=== PATIENT | female | born 1950 | race Caucasian/White ===

== ENCOUNTER → 2017-12-14 15:34 | Outpatient (CLI) | payer MEDICARE, BC, SELFPAY ==
[2017-12-14 17:59] LABS: D Dimer 221 ng/mL (<230)
== END ==
PROVIDERS: PCP Internal Medicine; Visit Provider Internal Medicine
DX: R07.9 Chest pain, unspecified (principal)
CPT/HCPCS: 36415; 85379

== ENCOUNTER → 2017-12-30 11:12 | Outpatient (CLI) | payer MEDICARE, BC, SELFPAY ==
[2017-12-30 11:56] LABS: INR 1.3 (0.9-1.3); Prothrombin Time 14.1 SECONDS (10.1-12.7)
== END ==
PROVIDERS: PCP Internal Medicine; Visit Provider Internal Medicine
DX: D68.61 Antiphospholipid syndrome (principal)
CPT/HCPCS: 36415; 85610

== ENCOUNTER → 2018-01-06 11:45 | Outpatient (CLI) | payer MEDICARE, BC, SELFPAY ==
[2018-01-06 12:56] LABS: INR 1.1 (0.9-1.3); Prothrombin Time 12.2 SECONDS (10.1-12.7)
== END ==
PROVIDERS: PCP Internal Medicine; Visit Provider Internal Medicine
DX: D68.61 Antiphospholipid syndrome (principal)
CPT/HCPCS: 36415; 85610

== ENCOUNTER → 2018-01-13 12:36 | Outpatient (CLI) | payer MEDICARE, BC, SELFPAY ==
[2018-01-13 14:00] LABS: Prothrombin Time 21.9 SECONDS (10.1-12.7)
== END ==
PROVIDERS: PCP Internal Medicine; Visit Provider Internal Medicine
DX: D68.61 Antiphospholipid syndrome (principal)
CPT/HCPCS: 36415; 85610

== ENCOUNTER → 2018-01-20 11:34 | Outpatient (CLI) | payer MEDICARE, BC, SELFPAY ==
--- NOTE | 2018-01-20 | DI.CT.S_ITS ---
PROCEDURE: CT ABDOMEN WO CON INDICATIONS: RIGHT UPPER QUAD PAIN TECHNIQUE: After the administration of oral contrast, 5 mm thick sections acquired from the diaphragms to the iliac crests. 5 mm coronal and sagittal reformats were then performed. For radiation dose reduction, the following was used: automated exposure control, adjustment of mA and/or kV according to patient size. COMPARISON: None. FINDINGS: Image quality: Excellent. Lung bases: Lung bases are clear. Heart size is normal. Solid organs: Liver is normal in size. Gallbladder unremarkable. Pancreas is normal in contours. Spleen is normal in size. No adrenal nodules. Both kidneys are normal in size, without hydronephrosis or nephrolithiasis. 4 cm incidental left renal cyst Peritoneum and bowel: Postsurgical changes in the GE junction. Bowel loops demonstrate normal wall thickness and caliber. No free fluid or air. Nodes and vessels: No retroperitoneal or mesenteric adenopathy by size criteria. Aorta and inferior vena cava are normal in size. Bones: No suspicious bony lesions. Diffuse osteopenia. No vertebral body compression fractures. Miscellaneous: No ventral hernias. Bilateral breast prostheses incidentally noted. IMPRESSION: No acute abnormality. No evidence of hematoma. Dictated by: Art Brewer M.D. on 01/20/2018 at 14:36 Approved by: Art Brewer M.D. on 01/20/2018 at 14:44
== END ==
PROVIDERS: PCP Internal Medicine; Visit Provider Internal Medicine
DX: R10.11 Right upper quadrant pain (principal); Z79.01 Long term (current) use of anticoagulants
CPT/HCPCS: 74150; Q9967

== ENCOUNTER → 2018-01-28 11:09 | Outpatient (CLI) | payer MEDICARE, BC, SELFPAY ==
--- NOTE | 2018-01-28 | DI.RAD.S_ITS ---
PROCEDURE: XR RIBS RT 2V INDICATIONS: RIGHT RIB PAIN TECHNIQUE: 2 views of the right ribs were acquired. COMPARISON: None. FINDINGS: Surgical changes and devices: None. Bones and chest wall: No fractures or dislocations. No suspicious bony lesions. There is costochondral calcification. Possible costochondral fractures of the right eighth and ninth ribs. Overlying soft tissues appear unremarkable. Lungs and pleura: The visualized lung appears clear. No pleural effusions or pneumothorax are visible. IMPRESSION: ? Costochondral fractures of the right eighth and ninth ribs. Dictated by: Sage Mcgraw M.D. on 01/28/2018 at 13:01 Approved by: Sage Mcgraw M.D. on 01/28/2018 at 13:14
== END ==
PROVIDERS: PCP Internal Medicine; Visit Provider Internal Medicine Gastroenterology
DX: R07.81 Pleurodynia (principal)
CPT/HCPCS: 71100

== ENCOUNTER → 2018-02-08 12:01 | Outpatient (CLI) | payer MEDICARE, BC, SELFPAY ==
--- NOTE | 2018-02-08 12:03 | DI.RAD.S_ITS ---
PROCEDURE: XR CHEST 2V INDICATIONS: Chest pain TECHNIQUE: 2 views of the chest were acquired. COMPARISON: None. FINDINGS: Surgical changes and devices: Surgical clips projecting over the upper abdomen Lungs and pleura: No pleural effusions or pneumothorax. No acute consolidation. Scattered subsegmental atelectasis and/or scarring Mediastinum: Mediastinal contours are normal. Heart size is normal. Bones and chest wall: No suspicious bony abnormalities. Left shoulder joint degeneration, with glenoid subchondral cystic changes. Soft tissues appear unremarkable. IMPRESSION: No acute consolidation. Dictated by: Art Brewer M.D. on 02/08/2018 at 13:52 Approved by: Art Brewer M.D. on 02/08/2018 at 13:53
[2018-02-08 12:35] LABS: Add Manual Diff / Slide Review NO; Basophils Percent Auto 0.7 % (0-2); Eosinophils Percent Auto 0.4 % (2-4); Hematocrit 40.6 % (36-46); Hemoglobin 13.4 g/dL (12.0-16.0); Lymphocytes Percent Auto 23.9 % (25-40); Mean Corpuscular HGB Conc 32.9 % (30-36); Mean Corpuscular Volume 82.1 fL (80-100); Monocytes Percent Auto 9.6 % (3-14); Neutrophils Absolute Auto 4600 /uL (1500-7000); Neutrophils Percent Auto 65.4 % (50-75); Platelet Count 334 X10^3/uL (150-400); Red Blood Cell Count 4.95 X10^6/uL (4.0-5.2); Red Cell Distribution Width 14.4 % (11.6-14.8)
[2018-02-08 13:08] LABS: Alanine Aminotransferase 35 IU/L (9-52); Albumin 5.1 g/dL (3.5-5.0); Albumin Globulin Ratio 1.8 (1.0-2.8); Alkaline Phosphatase 109 U/L (38-126); Aspartate Aminotransferase 42 IU/L (14-36); BUN Creatinine Ratio 24.3 (6-22); Bilirubin Total 0.3 mg/dL (0.2-1.3); Blood Urea Nitrogen 17 mg/dL (7-17); Calcium 10.4 mg/dL (8.4-10.2); Carbon Dioxide 25 mmol/L (22-32); Chloride 101 mmol/L (98-107); Estimated Glomerular Filt Rate > 60.0 mL/min (>60); Globulin 2.8 g/dL (1.7-4.1); Glucose 103 mg/dL (80-110); HEMOLYSIS < 15 (0-50); Potassium 4.8 mmol/L (3.4-5.1); Sodium 141 mmol/L (137-145); Total Protein 7.9 g/dL (6.3-8.2)
[2018-02-08 15:19] LABS: INR 0.9 (0.9-1.3); Prothrombin Time 10.9 SECONDS (10.1-12.7)
[2018-02-08 15:22] LABS: PTT Partial Thromboplastin Tim 37 SECONDS (26.4-36.2)
== END ==
PROVIDERS: PCP Family Medicine; Visit Provider Family Medicine
DX: R07.9 Chest pain, unspecified (principal); D68.61 Antiphospholipid syndrome; I10 Essential (primary) hypertension
CPT/HCPCS: 36415; 71046; 80053; 85025; 85610; 85730

== ENCOUNTER → 2018-02-09 09:55 | Outpatient (CLI) | payer MEDICARE, BC, SELFPAY ==
--- NOTE | 2018-02-09 09:56 | DI.NM.S_ITS ---
PROCEDURE: NM PUL VENT AND PERFUSION RADIOPHARMACEUTICAL: 37.1 mCi Tc-99m DTPA aerosol by inhalation and 9.4 mCi Tc-99m MAA intravenously. INDICATIONS: chest pain, rib pain TECHNIQUE: Ventilation images were obtained first with Tc-99m DTPA aerosol. Subsequently, perfusion images were acquired after intravenous injection of Tc-99m MAA. Anterior, posterior, FRITZ, [place]IZ[place], RPO, LPO, left and right lateral views were obtained. COMPARISON: [facility], CR, XR CHEST 2V, 02/08/2018, 12:11. FINDINGS: There is heterogeneous appearance of ventilation and perfusion. Chest x-ray is clear. IMPRESSION: Low probability of pulmonary embolism. Dictated by: Jessica Steen M.D. on 02/09/2018 at 12:37 Approved by: Jessica Steen M.D. on 02/09/2018 at 12:39
== END ==
PROVIDERS: PCP Family Medicine; Visit Provider Family Medicine
DX: R07.9 Chest pain, unspecified (principal); R07.81 Pleurodynia
CPT/HCPCS: 78582; A9539; A9540

== ENCOUNTER → 2018-05-24 14:48 | Outpatient (CLI) | payer MEDICARE, BC, SELFPAY ==
--- NOTE | 2018-05-24 | DI.ECHO.S_ITS ---
[facility]---------+ [facility] +---------+ : : [address] [place] : : : : [id number] : : : : Phone: [phone] Echocardiogram Report + + :Name: KAILEE GONZALES Study Date: 05/24/2018 Height: 65 in : :[facility] Weight: 136 lb : : Gender: Female BSA: 1.7 m2 : :: 1950 Age: 68 yrs BP: 150/78 mmHg: :Reason For Study: Arrhythmia, SVT : :Ordering Physician: Chano : :Erika Lozano Performed By: Rola Trammell : :Referring: Angela Yanes : + + Interpretation Summary 1) Normal left ventricular thickness, size, wall motion, and systolic function (EF 60-65%). 2) Normal right ventricular size and function. 3) The left atrium is moderately dilated. 4) No significant valvular abnormalities. 5) Hypertension present during the study (BP 150/78). 6) No prior Echo available for comparison. Procedure: A two-dimensional transthoracic echocardiogram with color flow and Doppler was performed. The study quality was technically adequate. There is no prior echocardiogram noted for this patient. The patient was in normal sinus rhythm during the exam. Left Ventricle: The left ventricle is normal in size, wall thickness, and systolic function without any focal wall motion abnormalities. The ejection fraction is estimated to be 60-65%. Diastolic parameters suggest a relaxation abnormality of the left ventricle, consistent with probable normal filling pressures. Right Ventricle: The right ventricle grossly appears normal in size with probable normal systolic function. Atria: The left atrium is moderately dilated. Right atrial size is normal. The interatrial septum is intact with no evidence for an atrial septal defect. Mitral Valve: The mitral valve is normal in structure and function. There is no mitral regurgitation noted. Aortic Valve: The aortic valve is trileaflet. The aortic valve opens well. There is no aortic valve stenosis. There is trace aortic regurgitation. Tricuspid Valve: The tricuspid valve is normal in structure and function. There is trace tricuspid regurgitation. The right ventricular systolic pressure is estimated to be at least 29 mmHg based on an estimated right atrial pressure of 3 mm Hg. Pulmonic Valve: The pulmonic valve is not well visualized. Great Vessels: The aortic root is normal size. The dimensions of the ascending aorta are normal. The aortic arch is at the upper limits of normal in size. The IVC is of normal diameter and collapses greater than 50% with a sniff. This suggests a low right atrial pressure of 3 mm Hg. Pericardium/ Pleura There is no pericardial effusion. There is no pleural effusion. MMode/2D Measurements & Calculations LVIDd: 4.1 cm Ao root diam: 3.1 cm LVIDs: 2.0 cm Aortic Jxn: 2.7 cm FS: 52.3 % asc Aorta Diam: 3.0 cm EPSS: 0.28 cm Ao Arch Diam (Prox Trans): 3.1 cm IVSd: 0.93 cm LVPWd: 0.96 cm LV gaviria. diameter/BSA (cm/m^2): 2.5 LV sys. diameter/BSA (cm/m^2): 1.2 LA dimension: 3.3 cm RA long axis: 4.5 cm LA A2 area: 21.9 cm2 RA area: 14.1 cm2 LA A4 area: 25.0 cm2 RA vol: 37.7 ml LA length (vol): 5.9 cm RA : 22.5 ml/m2 LA vol: 78.7 ml IVC diam: 1.8 cm LA vol index: 46.9 ml/m2 RVDd major: 4.9 cm RVD1 (basal): 3.0 cm RVD2 (mid): 2.9 cm Doppler Measurements & Calculations Ao V2 max: 121.7 cm/sec MV E max néstor: 102.1 cm/sec Ao V2 mean: 83.5 cm/sec MV A max néstor: 78.0 cm/sec Ao max P.9 mmHg MV E/A: 1.3 Ao mean P.2 mmHg Med Peak E' Néstor: 5.5 cm/sec Ao V2 VTI: 28.3 cm E/E' med: 18.7 Lat Peak E' Néstor: 6.7 cm/sec E/E' lat: 15.2 E/e' average: 16.9 MV dec time: 0.19 sec MV P1/2t: 56.0 msec TR max néstor: 255.8 cm/sec MV P1/2t max néstor: 102.5 cm/sec TR max P.2 mmHg MVA(P1/2t): 3.9 cm2 Reading Physician:05:07 PM
== END ==
PROVIDERS: PCP Family Medicine; Visit Provider Internal Medicine Cardiovascular Disease
DX: I47.1 Supraventricular tachycardia (principal)
CPT/HCPCS: 93306

== ENCOUNTER → 2018-06-02 11:01 | Outpatient (CLI) | payer MEDICARE, BC, SELFPAY ==
--- NOTE | 2018-06-04 16:41 | PM.PFT.1 ---
Pulmonary Function Test Referral & Results Date Patient Seen: 06/02/18 Requesting provider: Chano Lozano Indication: R06.09 Results: The spirometry demonstrates an FVC of 3.12 L which is 98% of predicted. The FEV1 was measured at 2.20 L which is 90% of predicted. The FEV1/FVC ratio was 70 which is 92% of predicted. Following the administration of bronchodilator there was no appreciable change. Lung volumes show an SVC of 2.86 L which is 95% of predicted. The diffusing capacity was measured at 21.8 for which is 85% of predicted. No hemoglobin value was provided, so no correction for potential anemia could be made, if appropriate. The maximum voluntary ventilation was minimally reduced Interpretation: This study is essentially normal. There may be a very minimal reduction in diffusing capacity.
== END ==
PROVIDERS: PCP Family Medicine; Visit Provider Internal Medicine Cardiovascular Disease
DX: R06.09 Other forms of dyspnea (principal)
CPT/HCPCS: 94060; 94726; 94729

== ENCOUNTER → 2018-06-05 09:52 | Outpatient (CLI) | payer MEDICARE, BC, SELFPAY ==
[2018-06-05 10:40] LABS: Cholesterol 237 mg/dL (140-199); HDL Cholesterol 78 mg/dL (40-60); LDL Cholesterol Calculated 137 mg/dL (<100); Triglycerides 112 mg/dL (35-150)
== END ==
PROVIDERS: PCP Family Medicine; Visit Provider Internal Medicine Cardiovascular Disease
DX: I10 Essential (primary) hypertension (principal)
CPT/HCPCS: 36415; 80061

== ENCOUNTER 2018-07-05 19:12 | Emergency (ER) | payer MEDICARE, BC, SELFPAY ==
[2018-07-05 19:17] VITALS: BP 152/87; PULSE 74; RESP 14; TEMP 36.2; O2SAT 100
--- NOTE | 2018-07-05 19:31 | ED_ITS ---
HPI - Extremity Problem General Chief complaint: Extremity Problem,Nontraumatic Stated complaint: BOTH LEGS HURT THINK BLOOD CLOTS Time Seen by Provider: 07/05/18 19:30 Related Data Home Medications Medication Instructions Recorded Confirmed fexofenadine PO 12/31/17 06/15/18 fluticasone propionate 50 2 spray NASAL DAILY 12/31/17 06/15/18 mcg/actuation nasal spray,suspension metoprolol tartrate 50 mg tablet 50 mg PO BID 12/31/17 06/15/18 olopatadine 0.2 % eye drops EYE-BOTH ml 12/31/17 06/15/18 pirbuterol 200 mcg/actuation mcg INHALATION 12/31/17 06/15/18 aerosol inhaler rosuvastatin 5 mg tablet 2.5 mg PO DAILY tab 06/15/18 06/15/18 Previous Rx's Medication Instructions Recorded apixaban 2.5 mg tablet 2.5 mg PO BID #60 tab 02/08/18 hydrocodone 5 mg-acetaminophen 325 1 tab PO Q6H #30 tab 02/08/18 mg tablet fremanezumab-vfrm 225 mg/1.5 mL 225 mg SUBCUT QMONTH #1.5 ml 02/10/18 subcutaneous syringe estradiol 0.01% (0.1 mg/gram) See Rx Instructions VAG .COMPLEX 03/29/18 vaginal cream #42.5 gram losartan 50 mg tablet 50 mg PO DAILY #30 tab 04/09/18 diclofenac potassium 50 mg oral 50 mg PO DAILY PRN #9 each 04/15/18 powder packet diclofenac sodium 50 mg 50 mg PO ONCE #10 tab 04/19/18 tablet,delayed release Allergies Allergy/AdvReac Type Severity Reaction Status Date / Time amoxicillin Allergy Intermediate rash/welts/difficylty Verified 06/15/18 11:56 breathing aspirin Allergy Intermediate Difficulty Verified 06/15/18 11:56 Breathing iodine Allergy Intermediate Difficulty Verified 06/15/18 11:56 Breathing Penicillins Allergy Intermediate rash/welts/difficulty Verified 06/15/18 11:56 breathing sulfur dioxide Allergy Intermediate Difficulty Verified 06/15/18 11:56 Breathing codeine Allergy Mild Vomiting Verified 06/15/18 11:56 nitroglycerin AdvReac Intermediate bradycardia Verified 06/15/18 11:56 ,hypotensio n [id number] Antimigraine AdvReac Intermediate Verified 06/15/18 11:56 Agents lactase [From Dairy Aid] AdvReac Mild Diarrhea Verified 06/15/18 11:56 Red Food Dye Allergy Intermediate Difficulty Uncoded 06/09/18 13:43 Breathing [facility] Medical History (Updated 02/10/18 @ 17:28 by Ting Pruett) Chronic migraine without aura, intractable, without status migrainosus (Chronic) Rib fractures (Acute 01/2018) Ankle pain (Chronic 2015) Antiphospholipid antibody syndrome (Chronic 2011) Asthma (Chronic 1997) Chronic headaches (Chronic 1959) Gout (Chronic 1991) Inappropriate sinus tachycardia (Chronic) MS (multiple sclerosis) (Chronic 2006) Rheumatoid arthritis (Chronic 2016) Abnormal Pap smear of cervix (Resolved 1978) Anemia (Resolved ~1965) Cervical cancer (Resolved 1978) Chicken pox (Resolved) GI bleeding (Resolved 1965) Hemorrhoids (Resolved 1967) Infertility (Resolved) Irregular periods/menstrual cycles (Resolved) Kidney stones (Resolved 1975) Measles (Resolved) Mumps (Resolved) Painful menstrual periods (Resolved) Peptic ulcer disease (Resolved 1965) Thyroid cancer (Resolved 2006) Surgical History (Updated 02/10/18 @ 17:24 by Ting Pruett) Anesthesia complication (Resolved) History of gynecologic surgery (Resolved 1978) History of surgery (Resolved 1965) History of surgery (Resolved 1966) Family History (Updated 02/10/18 @ 17:13 by Ting Pruett) Father No problems noted. Mother No problems noted. Brother No problems noted. Sister Cancer Diabetes mellitus Heart disease Hypertension Hyperlipidemia Mental health problem Sister Diabetes mellitus Hypertension Hyperlipidemia Stroke Grandfather Heart disease Hypertension Grandmother Diabetes mellitus Hypertension Hyperlipidemia Social History Smoking Status: Never smoker second hand exposure: No alcohol intake: current (wine 2x a week) substance use type: does not use Social History Smoking Status: Never smoker second hand exposure: No alcohol intake: current (wine 2x a week) substance use type: does not use Exam Initial Vital Signs Initial Vital Signs: Vital Signs Temperature 97.1 F L 07/05/18 19:17 Pulse Rate 74 07/05/18 19:17 Respiratory Rate 14 07/05/18 19:17 Blood Pressure 152/87 H 07/05/18 19:17 Pulse Oximetry 100 07/05/18 19:17 Course Vital Signs - 8 hr 07/05/18 19:17 Temperature 97.1 F L Pulse Rate 74 Respiratory Rate 14 Blood Pressure 152/87 H Pulse Oximetry 100 Discharge Plan Departure Prescriptions: No Action hydrocodone-acetaminophen [Newberry] 5-325 mg tablet 1 tab PO Q6H Qty: 30 RF: 0 apixaban [Eliquis] 2.5 mg tablet 2.5 mg PO BID Qty: 60 RF: 2 estradiol [Estrace] 0.01 % (0.1 mg/gram) cream See Rx Instructions VAG .COMPLEX Qty: 42.5 RF: 0 losartan 50 mg tablet 50 mg PO DAILY Qty: 30 RF: 6 diclofenac sodium 50 mg tablet,delayed release (DR/EC) 50 mg PO ONCE Qty: 10 RF: 2 rosuvastatin 5 mg tablet 2.5 mg PO DAILY RF: 0 pirbuterol 200 mcg/actuation aerosol INHALATION RF: 0 metoprolol tartrate 50 mg tablet 50 mg PO BID RF: 0 fluticasone propionate 50 mcg/actuation spray,suspension 2 spray NASAL DAILY RF: 0 olopatadine [Pataday] 0.2 % drops EYE-BOTH RF: 0 fexofenadine PO RF: 0 fremanezumab-vfrm [Ajovy] 225 mg/1.5 mL syringe 225 mg SUBCUT QMONTH Qty: 1.5 RF: 11 Cambia 50 mg powder in packet 50 mg PO DAILY PRN (Reason: migraine headache) Qty: 9 RF: 1
--- NOTE | 2018-07-05 19:31 | ED_ITS ---
HPI - Extremity Problem General Chief complaint: Extremity Problem,Nontraumatic Stated complaint: BOTH LEGS HURT THINK BLOOD CLOTS Time Seen by Provider: 07/05/18 19:30 Source: patient and family (Her ) Mode of arrival: ambulatory Limitations: no limitations History of Present Illness HPI Narrative: The patient presents with complaints of bilateral leg pain, right greater than left. Pain is particularly notable in the mid calf region of the right proximal leg. The patient has a history of DVT. She was initially started on Coumadin approximately 12 years ago. She was recently stopped on anticoagulants, then restarted. She currently takes Eliquis. She ran out of medications about 5 days ago, she has now restarted the medications. There is concern about his leg pain. She is having some swelling to the right foot from the right upper leg, in addition to the admission to swelling to the left leg. She has no associated chest pain, dyspnea or hemoptysis. She has no fever. She has no recent trauma. She does walk 5 miles daily several times a week. She denies trauma associated with the walking. She walks generally flat ground, there is no clear injury. The pain seems to be escalating. I quizzed the patient about the reason for prolonged care for blood clots, she has not had known recurrence. She has no rhythm issues or heart issues. Her visually mentioned antiphospholipid antibody. Even with this discussion there was some controversy whether she truly had a problem. Care was done at a prior home in [place], she has recently moved to this area. She has required no more care here regarding this topic other than a refill of the Eliquis. Related Data Home Medications Medication Instructions Recorded Confirmed fexofenadine PO 12/31/17 06/15/18 fluticasone propionate 50 2 spray NASAL DAILY 12/31/17 06/15/18 mcg/actuation nasal spray,suspension metoprolol tartrate 50 mg tablet 50 mg PO BID 12/31/17 06/15/18 olopatadine 0.2 % eye drops EYE-BOTH ml 12/31/17 06/15/18 pirbuterol 200 mcg/actuation mcg INHALATION 12/31/17 06/15/18 aerosol inhaler rosuvastatin 5 mg tablet 2.5 mg PO DAILY tab 06/15/18 06/15/18 Previous Rx's Medication Instructions Recorded apixaban 2.5 mg tablet 2.5 mg PO BID #60 tab 02/08/18 hydrocodone 5 mg-acetaminophen 325 1 tab PO Q6H #30 tab 02/08/18 mg tablet fremanezumab-vfrm 225 mg/1.5 mL 225 mg SUBCUT QMONTH #1.5 ml 02/10/18 subcutaneous syringe estradiol 0.01% (0.1 mg/gram) See Rx Instructions VAG .COMPLEX 03/29/18 vaginal cream #42.5 gram losartan 50 mg tablet 50 mg PO DAILY #30 tab 04/09/18 diclofenac potassium 50 mg oral 50 mg PO DAILY PRN #9 each 04/15/18 powder packet diclofenac sodium 50 mg 50 mg PO ONCE #10 tab 04/19/18 tablet,delayed release tramadol 50 mg PO Q6H PRN #15 tab 07/05/18 Allergies Allergy/AdvReac Type Severity Reaction Status Date / Time amoxicillin Allergy Intermediate rash/welts/difficylty Verified 06/15/18 11:56 breathing aspirin Allergy Intermediate Difficulty Verified 06/15/18 11:56 Breathing iodine Allergy Intermediate Difficulty Verified 06/15/18 11:56 Breathing Penicillins Allergy Intermediate rash/welts/difficulty Verified 06/15/18 11:56 breathing sulfur dioxide Allergy Intermediate Difficulty Verified 06/15/18 11:56 Breathing codeine Allergy Mild Vomiting Verified 06/15/18 11:56 nitroglycerin AdvReac Intermediate bradycardia Verified 06/15/18 11:56 ,hypotensio n [id number] Antimigraine AdvReac Intermediate Verified 06/15/18 11:56 Agents lactase [From Dairy Aid] AdvReac Mild Diarrhea Verified 06/15/18 11:56 Red Food Dye Allergy Intermediate Difficulty Uncoded 06/09/18 13:43 Breathing Review of Systems Review of Systems ROS Unobtainable: All systems reviewed & are unremarkable except as noted in HPI and below Constitutional Denies frequent falls ENT Ears, Nose, Mouth, and Throat: Denies dizziness Cardiovascular Denies chest pain, Denies lightheadedness, Denies palpitations, Denies dyspnea and Denies orthopnea Respiratory Denies cough, Denies hemoptysis and Denies dyspnea Gastrointestinal Gastrointestinal: Reports abdominal pain, Denies change in bowel habits, Denies diarrhea, Denies nausea and Denies vomiting Musculoskeletal Reports as per HPI and Denies numbness Integumentary/Breasts Denies erythema and Denies rash Neurologic Denies confusion, Denies dizziness, Denies frequent falls and Denies numbness Psychiatric Denies confusion Endocrine Denies palpitations Hematologic/Lymphatic Comments: Chronically using blood thinners. [facility] Medical History Chronic migraine without aura, intractable, without status migrainosus (Chronic) Rib fractures (Acute 01/2018) Ankle pain (Chronic 2015) Antiphospholipid antibody syndrome (Chronic 2011) Asthma (Chronic 1997) Chronic headaches (Chronic 1959) Gout (Chronic 1991) Inappropriate sinus tachycardia (Chronic) MS (multiple sclerosis) (Chronic 2006) Rheumatoid arthritis (Chronic 2016) Abnormal Pap smear of cervix (Resolved 1978) Anemia (Resolved ~1965) Cervical cancer (Resolved 1978) Chicken pox (Resolved) GI bleeding (Resolved 1965) Hemorrhoids (Resolved 1967) Infertility (Resolved) Irregular periods/menstrual cycles (Resolved) Kidney stones (Resolved 1975) Measles (Resolved) Mumps (Resolved) Painful menstrual periods (Resolved) Peptic ulcer disease (Resolved 1965) Thyroid cancer (Resolved 2006) Surgical History Anesthesia complication (Resolved) History of gynecologic surgery (Resolved 1978) History of surgery (Resolved 1965) History of surgery (Resolved 1966) Family History (Updated 02/10/18 @ 17:13 by Ting Pruett) Father No problems noted. Mother No problems noted. Brother No problems noted. Sister Cancer Diabetes mellitus Heart disease Hypertension Hyperlipidemia Mental health problem Sister Diabetes mellitus Hypertension Hyperlipidemia Stroke Grandfather Heart disease Hypertension Grandmother Diabetes mellitus Hypertension Hyperlipidemia Social History Smoking Status: Never smoker second hand exposure: No alcohol intake: current (wine 2x a week) substance use type: does not use Family History Father No problems noted. Mother No problems noted. Brother No problems noted. Sister Cancer Diabetes mellitus Heart disease Hypertension Hyperlipidemia Mental health problem Sister Diabetes mellitus Hypertension Hyperlipidemia Stroke Grandfather Heart disease Hypertension Grandmother Diabetes mellitus Hypertension Hyperlipidemia Social History Smoking Status: Never smoker second hand exposure: No alcohol intake: current (wine 2x a week) substance use type: does not use Exam Initial Vital Signs Initial Vital Signs: Vital Signs Temperature 97.1 F L 07/05/18 19:17 Pulse Rate 74 07/05/18 19:17 Respiratory Rate 14 07/05/18 19:17 Blood Pressure 152/87 H 07/05/18 19:17 Pulse Oximetry 100 07/05/18 19:17 Const General: cooperative and well developed Nutritional Appearance: well nourished Orientation: alert, awake, oriented x3 and not confused Eyes Conjunctivae: conjunctivae normal Neck Neck: supple and No JVD Resp Effort & Inspection: normal respiratory effort, able to speak in complete sentences, no respiratory distress and no use of accessory muscles Auscultation: clear to auscultation bilaterally, no rales, no rhonchi and no wheezes Cardio Rate: regular rate Rhythm: regular rhythm Heart Sounds: no click, no gallops, no murmurs and no rubs Pulses: normal peripheral pulses GI Palpation: soft, No guarding and No other Skin General: no rashes or lesions noted and No petechiae Neuro General: alert, oriented x3, gait normal and no focal motor deficits Speech: speech normal Extrem Other: Tenderness in the right proximal/medial calf. Negative Homans signs. Slight edema in the upper leg and down to the foot. Normal right dorsalis pedis pulse. Subtle edema in the proximal left medial calf area. No joint tenderness in either knee. No joint tenderness in either ankle. Negative Homans sign on the left. Normal dorsalis pedis pulse on the left. Course Orders Ordered: Discontinued Medications Tramadol HCl (Ultram 50mg Prepack) 1 bottle [facility] ONE Stop: 07/05/18 21:14 Last Admin: 07/05/18 21:19 Dose: 1 bottle Vital Signs - 8 hr 07/05/18 21:23 Pulse Rate 69 Respiratory Rate 16 Blood Pressure [Left Arm] 147/80 H Pulse Oximetry 100 MDM - Extremity (Nontraumatic) Lab Data Result diagrams: 07/05/18 20:05 07/05/18 20:05 Lab Results 07/05/18 07/05/18 07/05/18 Range/Units 20:05 20:05 20:05 WBC 7.3 (4.5-11.0) X10^3/uL RBC 4.55 (4.0-5.2) X10^6/uL Hgb 12.3 (12.0-16.0) g/dL Hct 37.0 (36-46) % MCV 81.4 (80-100) fL MCH 27.1 (26-34) PG MCHC 33.3 (30-36) % RDW 14.0 (11.6-14.8) % Plt Count 310 (150-400) X10^3/uL Total Counted 100 Seg Neutrophils % 56.0 (38-70) % Band Neutrophils % Not Reportable Lymphocytes % (Manual) 34.0 (25-45) % Monocytes % (Manual) 9.0 (2-11) % Eosinophils % (Manual) 1.0 L (2-4) % Neutrophils # (Manual) 4088 (6972-3253) /uL RBC Morphology Normal morphology PT 11.0 (10.1-12.7) SECONDS INR 1.0 (0.9-1.3) D-Dimer < 200 (<230) ng/mL Sodium 136 L (137-145) mmol/L Potassium 3.8 (3.4-5.1) mmol/L Chloride 97 L (98-107) mmol/L Carbon Dioxide 28 (22-32) mmol/L BUN 16 (7-17) mg/dL Creatinine 0.80 (0.52-1.04) mg/dL Estimated GFR > 60.0 (>60) mL/min BUN/Creatinine Ratio 20.0 (6-22) Glucose 115 H (80-110) mg/dL Calcium 9.7 (8.4-10.2) mg/dL Imaging Data Ultrasound: Both lower extremities.: Radiologist's impression: [place] [address] Ultrasound Report Signed Patient: Hortencia Eubanks RMR#: [id number] : 1950Acct:[id number] Age/Sex: 68 / FDate of Service: 07/05/18 Loc: ED Accession Number: [id number] Procedure: US periph venous low extrem bi Ordering Provider: Sami Hensley MD PROCEDURE: US PERIPH VENOUS LOW EXTREM BI INDICATIONS: HYPERCOAGULABLE STATE TECHNIQUE: Real-time imaging, as well as color and pulse Doppler interrogation, were performed of the deep veins of both legs from the inguinal ligament to the popliteal fossa. COMPARISON: None. FINDINGS: Right: The common femoral, femoral and popliteal veins are normally compressible, and free of intraluminal thrombus. Color and pulse Doppler demonstrate normal phasic intravascular flow. There is normal augmentation response to distal compression maneuver. Left: The common femoral, femoral and popliteal veins are normally compressible, and free of intraluminal thrombus. Color and pulse Doppler demonstrate normal phasic intravascular flow. There is normal augmentation response to distal compression maneuver. IMPRESSION: No deep venous thrombosis. Dictated by: Jessica Steen M.D. on 07/05/2018 at 21:00 Approved by: Jessica Steen M.D. on 07/05/2018 at 21:00 ECG Data Attestation EKG: I personally reviewed and interpreted this ECG as follows: (Normal sinus rhythm rate 67 beats per minute. Possible right ventricular conduction delay. Otherwise normal intervals. No acute ST T wave changes. No ectopy.) MDM Narrative Medical decision making narrative: I had a discussion with the patient regarding the negative evaluation for potential DVT. The conversation also focused around anti phospholipid antibody. From the prior history it is unclear if she truly has the disorder. The patient is upset that she is having pain despite the evaluation. I re-evaluated the legs, the pain, especially the right is very much consistent with muscle strain. She is having a lot of pain. I suggested Tylenol. She was prescribed tramadol for pain unrelieved with Tylenol. I have advised her not to pursue her long walks until her legs are feeling better. She has a follow-up with her doctor regarding her legs, in about the debate on the anti phospholipid disorder. Discharge Plan Departure Patient Disposition: Home Clinical Impression: Muscle strain of right lower extremity Qualifiers: Encounter type: initial encounter Qualified Code(s): S86.911A - Strain of unspecified muscle(s) and tendon(s) at lower leg level, right leg, initial encounter Muscle strain of left lower extremity Qualifiers: Encounter type: initial encounter Qualified Code(s): S86.912A - Strain of unspecified muscle(s) and tendon(s) at lower leg level, left leg, initial encounter Discharge Date/Time: 07/05/18 21:31 Interventions: ED Discharge Assessment Last Done: 07/05/18 21:31 Instructions: Calf Muscle Strain Activity Restrictions/Additional Instructions: Rest your legs, continue your regular daily routine but avoid long walks or other workouts until your legs improve. Take Tramadol every 6 hours as needed for pain. Take Tylenol every 4 hours as needed for lesser pain. Follow-up with her doctor regarding your use of blood thinners, and the possible diagnosis of antiphospholipid antibody disorder. Your doctor needs to evaluate your need for continued long-term use of Eliquis. Return to the ER as needed. Prescriptions: New tramadol 50 mg tablet 50 mg PO Q6H PRN (Reason: pain) Qty: 15 RF: 0 No Action hydrocodone-acetaminophen [[place]] 5-325 mg tablet 1 tab PO Q6H Qty: 30 RF: 0 apixaban [Eliquis] 2.5 mg tablet 2.5 mg PO BID Qty: 60 RF: 2 estradiol [Estrace] 0.01 % (0.1 mg/gram) cream See Rx Instructions VAG .COMPLEX Qty: 42.5 RF: 0 losartan 50 mg tablet 50 mg PO DAILY Qty: 30 RF: 6 diclofenac sodium 50 mg tablet,delayed release (DR/EC) 50 mg PO ONCE Qty: 10 RF: 2 rosuvastatin 5 mg tablet 2.5 mg PO DAILY RF: 0 pirbuterol 200 mcg/actuation aerosol INHALATION RF: 0 metoprolol tartrate 50 mg tablet 50 mg PO BID RF: 0 fluticasone propionate 50 mcg/actuation spray,suspension 2 spray NASAL DAILY RF: 0 olopatadine [Pataday] 0.2 % drops EYE-BOTH RF: 0 fexofenadine PO RF: 0 fremanezumab-vfrm [Ajovy] 225 mg/1.5 mL syringe 225 mg SUBCUT QMONTH Qty: 1.5 RF: 11 Cambia 50 mg powder in packet 50 mg PO DAILY PRN (Reason: migraine headache) Qty: 9 RF: 1 Referrals: Angela Yanes DO [Primary Care Provider] -
--- NOTE | 2018-07-05 19:41 | DI.US.S_ITS ---
PROCEDURE: US PERIPH VENOUS LOW EXTREM BI INDICATIONS: HYPERCOAGULABLE STATE TECHNIQUE: Real-time imaging, as well as color and pulse Doppler interrogation, were performed of the deep veins of both legs from the inguinal ligament to the popliteal fossa. COMPARISON: None. FINDINGS: Right: The common femoral, femoral and popliteal veins are normally compressible, and free of intraluminal thrombus. Color and pulse Doppler demonstrate normal phasic intravascular flow. There is normal augmentation response to distal compression maneuver. Left: The common femoral, femoral and popliteal veins are normally compressible, and free of intraluminal thrombus. Color and pulse Doppler demonstrate normal phasic intravascular flow. There is normal augmentation response to distal compression maneuver. IMPRESSION: No deep venous thrombosis. Dictated by: Jessica Steen M.D. on 07/05/2018 at 21:00 Approved by: Jessica Steen M.D. on 07/05/2018 at 21:00
[2018-07-05 20:23] LABS: Hemoglobin 12.3 g/dL (12.0-16.0); Mean Corpuscular HGB Conc 33.3 % (30-36); Mean Corpuscular Hemoglobin 27.1 PG (26-34); Mean Corpuscular Volume 81.4 fL (80-100); Platelet Count 310 X10^3/uL (150-400); Red Blood Cell Count 4.55 X10^6/uL (4.0-5.2); White Blood Cell Count 7.3 X10^3/uL (4.5-11.0)
[2018-07-05 20:28] LABS: D Dimer < 200 ng/mL (<230)
[2018-07-05 20:29] LABS: Blood Urea Nitrogen 16 mg/dL (7-17); Calcium 9.7 mg/dL (8.4-10.2); Carbon Dioxide 28 mmol/L (22-32); Chloride 97 mmol/L (98-107); Estimated Glomerular Filt Rate > 60.0 mL/min (>60); Glucose 115 mg/dL (80-110); HEMOLYSIS < 15 (0-50); Potassium 3.8 mmol/L (3.4-5.1); Sodium 136 mmol/L (137-145)
[2018-07-05 20:58] LABS: Total Cells Counted 100
[2018-07-05 21:03] LABS: Neutrophils Absolute Manual 4088 /uL (3000-5900); RBC Morphology Normal Morphology
[2018-07-05] MEDS: TRAMADOL 50 MG PREPACK 1 BOTTLE MISC (21:19)
[2018-07-05 21:23] VITALS: BP 147/80; PULSE 69; RESP 16; O2SAT 100
== END 2018-07-05 21:31 | disposition home or self-care (01) ==
PROVIDERS: Emergency Provider Emergency Medicine; PCP Family Medicine
DX: S86.911A Strain of unspecified muscle(s) and tendon(s) at lower leg level, right leg, initial encounter (principal); S86.912A Strain of unspecified muscle(s) and tendon(s) at lower leg level, left leg, initial encounter; R03.0 Elevated blood-pressure reading, without diagnosis of hypertension; Z79.01 Long term (current) use of anticoagulants; Z86.718 Personal history of other venous thrombosis and embolism
CPT/HCPCS: 36415; 80048; 85025; 85379; 85610; 93005; 93010; 93970; 99282; 99285

== ENCOUNTER → 2018-08-17 11:10 | Outpatient (CLI) | payer MEDICARE, BC, SELFPAY ==
[2018-08-17 12:45] LABS: Cholesterol 213 mg/dL (140-199); HDL Cholesterol 83 mg/dL (40-60); LDL Cholesterol Calculated 108 mg/dL (<100); Triglycerides 111 mg/dL (35-150)
== END ==
PROVIDERS: PCP Family Medicine; Visit Provider Internal Medicine Cardiovascular Disease
DX: E78.5 Hyperlipidemia, unspecified (principal)
CPT/HCPCS: 36415; 80061

== ENCOUNTER → 2018-08-20 12:15 | Outpatient (CLI) | payer MEDICARE, BC, SELFPAY ==
--- NOTE | 2018-08-20 | DI.RAD.S_ITS ---
PROCEDURE: XR CHEST 2V INDICATIONS: CHEST PAIN TECHNIQUE: 2 views of the chest were acquired. COMPARISON: [facility], [place], XR CHEST 2V, 02/08/2018, 12:11. FINDINGS: Surgical changes and devices: None. Lungs and pleura: Lungs are clear. No pleural effusions or pneumothorax. Mediastinum: Mediastinal contours are normal. Heart size is normal. Bones and chest wall: No suspicious bony abnormalities. Soft tissues appear unremarkable. IMPRESSION: Normal for age, source of current chest pain symptoms is not seen. Dictated by: Ced Soni M.D. on 08/20/2018 at 13:13 Approved by: Ced Soni M.D. on 08/20/2018 at 13:13
--- NOTE | 2018-08-20 | DI.NM.S_ITS ---
PROCEDURE: PR PUL VENT AND PERFUSION RADIOPHARMACEUTICAL: <3 mCi Tc-99m DTPA aerosol by inhalation and 9.7 mCi Tc-99m MAA intravenously. INDICATIONS: CHEST PAIN/DYSPNEA TECHNIQUE: Ventilation images were obtained first with Tc-99m DTPA aerosol. Subsequently, perfusion images were acquired after intravenous injection of Tc-99m MAA. Anterior, posterior, FRITZ, ALBANIAN, RPO, LPO, left and right lateral views were obtained. COMPARISON: [facility], [place], PR PUL VENT AND PERFUSION, 02/09/2018, 11:11. [facility], , XR CHEST 2V, 08/20/2018, 12:39. FINDINGS: The chest x-ray dated 08/20/2018 demonstrated no pulmonary infiltrate or pleural effusion. The technetium 99m DTPA aerosol ventilation images demonstrate mild central airway deposition. There is otherwise physiological activity. Perfusion images demonstrate minor perfusion irregularities without pleural-based, segmental or subsegmental ventilation perfusion mismatches. IMPRESSION: 1. Very low likelihood ratio for pulmonary embolism. 2. Mild central airway deposition of aerosol, consistent with mild reactive airway disease. Dictated by: Sage Mcgraw M.D. on 08/20/2018 at 14:29 Approved by: Sage Mcgraw M.D. on 08/20/2018 at 14:39
== END ==
PROVIDERS: PCP Family Medicine; Visit Provider Internal Medicine Cardiovascular Disease
DX: R07.9 Chest pain, unspecified (principal); R06.00 Dyspnea, unspecified; J45.998 Other asthma
CPT/HCPCS: 71046; 78582; A9539; A9540

== ENCOUNTER → 2018-10-05 10:40 | Outpatient (CLI) | payer MEDICARE, BC, SELFPAY ==
[2018-10-05 12:20] LABS: Erythrocyte Sedimentation Rate 8 MM/HR (0-20)
[2018-10-05 12:21] LABS: Uric Acid 4.9 mg/dL (2.5-6.2)
[2018-10-07 20:14] LABS: ANA Screen, IFA Negative (Negative)
== END ==
PROVIDERS: Family Provider Internal Medicine Hematology & Oncology; PCP Family Medicine; Visit Provider Family Medicine
DX: M06.9 Rheumatoid arthritis, unspecified (principal); Z51.81 Encounter for therapeutic drug level monitoring
CPT/HCPCS: 36415; 84550; 85651; 86038; 86430

== ENCOUNTER → 2018-10-20 12:59 | Outpatient (CLI) | payer MEDICARE, BC, SELFPAY | PROVIDERS: Family Provider Internal Medicine Hematology & Oncology; PCP Family Medicine; Visit Provider Internal Medicine Rheumatology | DX: M85.9 Disorder of bone density and structure, unspecified (principal) | CPT/HCPCS: 77080 ==

== ENCOUNTER → 2018-11-16 15:06 | Outpatient (CLI) | payer MEDICARE, BC, SELFPAY ==
[2018-11-16 15:55] LABS: Add Manual Diff / Slide Review NO; Basophils Absolute Auto 0 /uL (0-100); Basophils Percent Auto 0.4 % (0-2); Eosinophils Absolute Auto 100 /uL (0-450); Eosinophils Percent Auto 0.7 % (2-4); Hematocrit 39.5 % (36-46); Hemoglobin 13.3 g/dL (12.0-16.0); Lymphocytes Absolute Auto 1300 /uL (1100-4500); Lymphocytes Percent Auto 11.7 % (25-40); Mean Corpuscular HGB Conc 33.7 % (30-36); Mean Corpuscular Hemoglobin 27.3 PG (26-34); Mean Corpuscular Volume 81.1 fL (80-100); Monocytes Absolute Auto 200 /uL (0-900); Monocytes Percent Auto 2.1 % (3-14); Neutrophils Absolute Auto 9100 /uL (1500-7000); Neutrophils Percent Auto 85.1 % (50-75); Platelet Count 370 X10^3/uL (150-400); Red Blood Cell Count 4.87 X10^6/uL (4.0-5.2); Red Cell Distribution Width 14.5 % (11.6-14.8); White Blood Cell Count 10.7 X10^3/uL (4.5-11.0)
[2018-11-16 16:06] LABS: D Dimer 230 ng/mL (<230)
[2018-11-16 16:08] LABS: Alanine Aminotransferase 20 IU/L (9-52); Albumin 4.8 g/dL (3.5-5.0); Albumin Globulin Ratio 1.5 (1.0-2.8); Alkaline Phosphatase 123 U/L (38-126); Aspartate Aminotransferase 39 IU/L (14-36); Bilirubin Total 0.3 mg/dL (0.2-1.3); Blood Urea Nitrogen 16 mg/dL (7-17); Calcium 10.4 mg/dL (8.4-10.2); Carbon Dioxide 28 mmol/L (22-32); Chloride 98 mmol/L (98-107); Estimated Glomerular Filt Rate 55.1 mL/min (>60); Globulin 3.1 g/dL (1.7-4.1); Glucose 145 mg/dL (80-110); HEMOLYSIS < 15 (0-50); Potassium 4.8 mmol/L (3.4-5.1); Sodium 137 mmol/L (137-145); Total Protein 7.9 g/dL (6.3-8.2)
== END ==
PROVIDERS: Family Provider Internal Medicine Hematology & Oncology; PCP Family Medicine; Visit Provider Internal Medicine Rheumatology
DX: Z79.899 Other long term (current) drug therapy (principal); M06.4 Inflammatory polyarthropathy; I82.409 Acute embolism and thrombosis of unspecified deep veins of unspecified lower extremity
CPT/HCPCS: 36415; 80053; 85025; 85379

== ENCOUNTER → 2018-12-01 11:16 | Outpatient (CLI) | payer MEDICARE, BC, SELFPAY ==
[2018-12-01 12:50] LABS: Add Manual Diff / Slide Review NO; Basophils Absolute Auto 0 /uL (0-100); Basophils Percent Auto 0.7 % (0-2); Eosinophils Absolute Auto 200 /uL (0-450); Hemoglobin 12.9 g/dL (12.0-16.0); Lymphocytes Absolute Auto 2600 /uL (1100-4500); Lymphocytes Percent Auto 36.3 % (25-40); Mean Corpuscular Hemoglobin 27.1 PG (26-34); Mean Corpuscular Volume 82.2 fL (80-100); Monocytes Absolute Auto 500 /uL (0-900); Monocytes Percent Auto 7.4 % (3-14); Neutrophils Absolute Auto 3700 /uL (1500-7000); Neutrophils Percent Auto 52.6 % (50-75); Platelet Count 387 X10^3/uL (150-400); Red Blood Cell Count 4.74 X10^6/uL (4.0-5.2); Red Cell Distribution Width 14.8 % (11.6-14.8); White Blood Cell Count 7.1 X10^3/uL (4.5-11.0)
[2018-12-01 13:07] LABS: Alanine Aminotransferase 24 IU/L (9-52); Albumin 4.6 g/dL (3.5-5.0); Albumin Globulin Ratio 1.6 (1.0-2.8); Alkaline Phosphatase 94 U/L (38-126); Aspartate Aminotransferase 38 IU/L (14-36); Bilirubin Total 0.4 mg/dL (0.2-1.3); Blood Urea Nitrogen 18 mg/dL (7-17); Calcium 10.6 mg/dL (8.4-10.2); Carbon Dioxide 30 mmol/L (22-32); Chloride 97 mmol/L (98-107); Estimated Glomerular Filt Rate > 60.0 mL/min (>60); Globulin 2.9 g/dL (1.7-4.1); Glucose 121 mg/dL (80-110); HEMOLYSIS < 15 (0-50); Potassium 4.4 mmol/L (3.4-5.1); Sodium 136 mmol/L (137-145); Total Protein 7.5 g/dL (6.3-8.2)
== END ==
PROVIDERS: Family Provider Family Medicine; PCP Family Medicine; Visit Provider Internal Medicine Rheumatology
DX: Z79.899 Other long term (current) drug therapy (principal); M06.4 Inflammatory polyarthropathy
CPT/HCPCS: 36415; 80053; 85025

== ENCOUNTER → 2018-12-29 11:51 | Outpatient (CLI) | payer MEDICARE, BC, SELFPAY ==
[2018-12-29 12:37] LABS: Add Manual Diff / Slide Review NO; Basophils Absolute Auto 0 /uL (0-100); Basophils Percent Auto 0.5 % (0-2); Eosinophils Absolute Auto 100 /uL (0-450); Eosinophils Percent Auto 1.7 % (2-4); Hematocrit 37.7 % (36-46); Hemoglobin 12.5 g/dL (12.0-16.0); Lymphocytes Absolute Auto 2200 /uL (1100-4500); Lymphocytes Percent Auto 35.8 % (25-40); Mean Corpuscular HGB Conc 33.2 % (30-36); Mean Corpuscular Hemoglobin 27.9 PG (26-34); Mean Corpuscular Volume 83.9 fL (80-100); Monocytes Absolute Auto 500 /uL (0-900); Monocytes Percent Auto 8.3 % (3-14); Neutrophils Absolute Auto 3300 /uL (1500-7000); Neutrophils Percent Auto 53.7 % (50-75); Platelet Count 351 X10^3/uL (150-400); Red Cell Distribution Width 15.7 % (11.6-14.8); White Blood Cell Count 6.2 X10^3/uL (4.5-11.0)
[2018-12-29 13:06] LABS: Alanine Aminotransferase 26 IU/L (<35); Albumin 4.6 g/dL (3.5-5.0); Alkaline Phosphatase 88 U/L (38-126); Aspartate Aminotransferase 49 IU/L (14-36); BUN Creatinine Ratio 22.5 (6-22); Bilirubin Total 0.5 mg/dL (0.2-1.3); Blood Urea Nitrogen 18 mg/dL (7-17); Calcium 10.2 mg/dL (8.4-10.2); Carbon Dioxide 28 mmol/L (22-32); Chloride 97 mmol/L (98-107); Estimated Glomerular Filt Rate > 60.0 mL/min (>60); Globulin 2.3 g/dL (1.7-4.1); Glucose 104 mg/dL (80-110); HEMOLYSIS < 15 (0-50); Potassium 4.9 mmol/L (3.4-5.1); Sodium 135 mmol/L (137-145); Total Protein 6.9 g/dL (6.3-8.2)
== END ==
PROVIDERS: Family Provider Family Medicine; PCP Family Medicine; Visit Provider Internal Medicine Rheumatology
DX: Z79.899 Other long term (current) drug therapy (principal); M06.4 Inflammatory polyarthropathy
CPT/HCPCS: 36415; 80053; 85025

== ENCOUNTER → 2019-01-28 12:00 | Outpatient (CLI) | payer MEDICARE, BC, SELFPAY ==
[2019-01-28 12:26] LABS: Add Manual Diff / Slide Review NO; Basophils Absolute Auto 0 /uL (0-100); Basophils Percent Auto 0.7 % (0-2); Eosinophils Absolute Auto 100 /uL (0-450); Hemoglobin 12.3 g/dL (12.0-16.0); Lymphocytes Absolute Auto 1900 /uL (1100-4500); Lymphocytes Percent Auto 34.7 % (25-40); Mean Corpuscular HGB Conc 33.2 % (30-36); Mean Corpuscular Hemoglobin 28.5 PG (26-34); Mean Corpuscular Volume 85.8 fL (80-100); Monocytes Absolute Auto 500 /uL (0-900); Monocytes Percent Auto 10.1 % (3-14); Neutrophils Absolute Auto 2800 /uL (1500-7000); Neutrophils Percent Auto 52.5 % (50-75); Platelet Count 344 X10^3/uL (150-400); Red Blood Cell Count 4.32 X10^6/uL (4.0-5.2); Red Cell Distribution Width 15.5 % (11.6-14.8); White Blood Cell Count 5.3 X10^3/uL (4.5-11.0)
[2019-01-28 13:44] LABS: Alanine Aminotransferase 28 IU/L (<35); Albumin 4.6 g/dL (3.5-5.0); Albumin Globulin Ratio 2.1 (1.0-2.8); Alkaline Phosphatase 89 U/L (38-126); Aspartate Aminotransferase 47 IU/L (14-36); Bilirubin Total 0.6 mg/dL (0.2-1.3); Blood Urea Nitrogen 12 mg/dL (7-17); Calcium 9.9 mg/dL (8.4-10.2); Carbon Dioxide 26 mmol/L (22-32); Chloride 101 mmol/L (98-107); Estimated Glomerular Filt Rate > 60.0 mL/min (>60); Globulin 2.2 g/dL (1.7-4.1); Glucose 94 mg/dL (80-110); HEMOLYSIS 17 (0-50); Potassium 4.6 mmol/L (3.4-5.1); Sodium 137 mmol/L (137-145); Total Protein 6.8 g/dL (6.3-8.2)
== END ==
PROVIDERS: PCP Family Medicine; Visit Provider Internal Medicine Rheumatology
DX: Z79.899 Other long term (current) drug therapy (principal); M06.4 Inflammatory polyarthropathy
CPT/HCPCS: 36415; 80053; 85025

== ENCOUNTER → 2019-03-03 12:09 | Outpatient (CLI) | payer MEDICARE, BC, SELFPAY ==
[2019-03-03 15:31] LABS: BUN Creatinine Ratio 25.7 (6-22); Blood Urea Nitrogen 18 mg/dL (7-17); Calcium 10.5 mg/dL (8.4-10.2); Carbon Dioxide 25 mmol/L (22-32); Chloride 101 mmol/L (98-107); Estimated Glomerular Filt Rate > 60.0 mL/min (>60); Glucose 99 mg/dL (80-110); HEMOLYSIS < 15 (0-50); Potassium 4.8 mmol/L (3.4-5.1); Sodium 138 mmol/L (137-145)
== END ==
PROVIDERS: PCP Family Medicine; Visit Provider Internal Medicine Cardiovascular Disease
DX: E87.5 Hyperkalemia (principal)
CPT/HCPCS: 36415; 80048

== ENCOUNTER → 2019-03-17 15:23 | Outpatient (CLI) | payer MEDICARE, BC, SELFPAY ==
[2019-03-17 17:13] LABS: TSH w/ Reflex to FT4 1.49 uIU/mL (0.47-4.68)
[2019-03-19 15:17] LABS: Calcium 10.2 mg/dL (8.6-10.4); Parathyroid Hormone, Intact 42 pg/mL (14-64)
== END ==
PROVIDERS: PCP Family Medicine; Visit Provider Nurse Practitioner Family
DX: E04.2 Nontoxic multinodular goiter (principal); Z85.850 Personal history of malignant neoplasm of thyroid; E83.52 Hypercalcemia
CPT/HCPCS: 36415; 82310; 83970; 84443

== ENCOUNTER → 2019-04-08 13:45 | Outpatient (CLI) | payer MEDICARE, BC, SELFPAY ==
--- NOTE | 2019-04-08 13:52 | DI.US.S_ITS ---
PROCEDURE: US THYROID INDICATIONS: NON TOXIC THYROID NODULE TECHNIQUE: Real-time scanning was performed of the thyroid gland, with image documentation. COMPARISON: None. FINDINGS: Right: Thyroid lobe measures 5.4 x 1.6 x 1.7 cm. Left: Left lobe is partially surgically absent. Residual left lobe measures 0.7 x 1.1 x 0.7 cm. Isthmus: 4 mm thick. Nodule number: 1 Location: Inferior right lobe Size: 1.4 x 1.4 x 1.3 cm. Composition: Solid Echogenicity: Isoechoic Shape: Wider than tall Margins: Smooth Echogenic foci: None Total points: 3 ACR TI-RADS category: Mildly suspicious Nodule number: 2 Location: Superior left Size: 0.9 x 1.0 x 0.7 cm. Composition: Solid Echogenicity: Isoechoic Shape: Wider than tall Margins: Smooth Echogenic foci: None Total points: 3 ACR TI-RADS category: Mildly suspicious IMPRESSION: Mildly suspicious nodules (TI-RADS 3) in the right and left thyroid lobes. Recommend followup imaging in one year. ACR TI-RADS definitions and recommendations: TI-RADS 1 (benign): 0 points. FNA not needed. TI-RADS 2 (not suspicious): 2 points. FNA not needed. TI-RADS 3 (mildly suspicious): 3 points. * FNA if 2.5 cm or larger, follow up if 1.5 cm or larger (at 1, 3, and 5 years). TI-RADS 4 (moderately suspicious): 4-6 points. * FNA if 1.5 cm or larger, follow up if 1 cm or larger (at 1, 2, 3, and 5 years). TI-RADS 5 (highly suspicious): 7 points or more. * FNA if 1 cm or larger, follow up if 0.5 cm or larger (every year for 5 years). Dictated by: Emily Waddell MD, PhD on 04/08/2019 at 16:37 Approved by: Emily Waddell MD, PhD on 04/08/2019 at 16:43
== END ==
PROVIDERS: PCP Family Medicine; Referring Provider Nurse Practitioner Family; Visit Provider Nurse Practitioner Family
DX: E04.2 Nontoxic multinodular goiter (principal)
CPT/HCPCS: 76536

== ENCOUNTER → 2019-04-11 13:51 | Outpatient (CLI) | payer MEDICARE, BC, SELFPAY ==
--- NOTE | 2019-04-11 | DI.MG.S_ITS ---
BILATERAL DIGITAL SCREENING MAMMOGRAM 3D/2D WITH CAD WITH AUGMENTATION: 04/11/2019 CLINICAL: Baseline exam. Routine screening. No prior exams were available for comparison. There are scattered fibroglandular elements in both breasts. Current study was also evaluated with a Computer Aided Detection (CAD) system. There is a 0.6 cm oval equal density asymmetry in the left breast posterior depth inferior region seen on the mediolateral oblique view only. It is not seen on the implant displaced view. No other significant masses, calcifications, or other findings are seen in either breast. The implants are intact. IMPRESSION: INCOMPLETE: NEEDS ADDITIONAL IMAGING EVALUATION The 0.6 cm oval equal density asymmetry in the inferior left breast is indeterminate. Additional views with possible ultrasound are recommended. This exam was interpreted at Station ID: [id number]. NOTE: For mammograms, a report in lay terms will be sent to the patient. Approximately 15% of breast malignancies will not be visualized mammographically. In the management of a palpable breast mass, a negative mammogram must not discourage biopsy of a clinically suspicious lesion. Electronically Signed By: Armand martinez/:04/12/2019 06:39:59 copy to: Maicol Guzman letter sent: Additional Imaging Needed ACR BI-RADS Category 0: Incomplete [id number]
== END ==
PROVIDERS: PCP Family Medicine; Referring Provider Family Medicine; Visit Provider Family Medicine
DX: Z12.31 Encounter for screening mammogram for malignant neoplasm of breast (principal)
CPT/HCPCS: 77063; 77067

== ENCOUNTER → 2019-04-12 14:50 | Outpatient (CLI) | payer MEDICARE, BC, SELFPAY ==
[2019-04-12 16:58] LABS: Free T3, Triiodothyronine Free 3.36 pg/mL (2.77-5.27); Free T4, Direct Thyroxine 0.69 ng/dL (0.78-2.19)
== END ==
PROVIDERS: PCP Family Medicine; Referring Provider Family Medicine; Visit Provider Family Medicine
DX: Z85.850 Personal history of malignant neoplasm of thyroid (principal)
CPT/HCPCS: 36415; 84439; 84443; 84481

== ENCOUNTER → 2019-04-27 14:43 | Outpatient (CLI) | payer MEDICARE, BC, SELFPAY ==
--- NOTE | 2019-04-27 15:23 | DI.US.S_ITS ---
Patient Name: KAILEE GONZALES date: 1950 Sex: F Attending Physician: Thomas Indications: Date: 04/27/2019 15:23 At the request of: NOHELIA MORE Procedure: US breast LT limited ULTRASOUND OF LEFT BREAST: 04/27/2019 CLINICAL: Additional evaluation requested from prior study. Comparison is made to exams dated: 04/11/2019 [facility]. Color flow and real-time ultrasound of the left breast were performed. Nuno scale images of the real-time examination were reviewed. Of note, the patient refused to have diagnostic mammographic evaluation for today's visit. She also reports allergies to both gadolinium and iodinated intravenous contrast material and will not be able to have breast MRI or contrast enhanced CTs. There is a 0.6 cm x 0.6 cm oval mass in the left breast at 4 o'clock posterior depth 4 cm from the nipple. This oval mass is hyperechoic. This likely correlates with previous mammography findings. Color flow imaging demonstrates that there is no vascularity present. There is suggestion of snowstorm appearance of this hyperechoic mass which may be seen with a silicone granuloma. She appears to have bilateral silicone implants on mammography. IMPRESSION: PROBABLY BENIGN The 0.6 cm x 0.6 cm oval hyperechoic mass in the left breast may represent a silicone granuloma and is probably benign. A follow-up left ultrasound in 6 months is recommended to demonstrate stability. Patient does not want to have mammographic evaluation. This exam was interpreted at Station ID: [id number]. Electronically Signed By: Armand Monge M.D. at/:04/27/2019 16:17:44 Continued Report - Page 2 of 2 Patient Name: KAILEE GONZALES date: 1950 Sex: F Attending Physician: Thomas Indications: Date: 04/27/2019 15:23 At the request of: NOHELIA MORE Procedure: US breast LT limited letter sent: Followup Recommended Ultrasound BI-RADS: 3 Probably benign
== END ==
PROVIDERS: PCP Family Medicine; Referring Provider Family Medicine; Visit Provider Family Medicine
DX: R92.8 Other abnormal and inconclusive findings on diagnostic imaging of breast (principal); N63.23 Unspecified lump in the left breast, lower outer quadrant
CPT/HCPCS: 76642

== ENCOUNTER → 2019-06-13 12:58 | Outpatient (CLI) | payer MEDICARE, BC, SELFPAY ==
[2019-06-13 15:58] LABS: Free T3, Triiodothyronine Free 3.19 pg/mL (2.77-5.27); Free T4, Direct Thyroxine 0.98 ng/dL (0.78-2.19)
[2019-06-13 16:12] LABS: Thyroid Stimulating Hormone 1.08 uIU/mL (0.47-4.68)
== END ==
PROVIDERS: PCP Family Medicine; Referring Provider Family Medicine; Visit Provider Family Medicine
DX: E03.9 Hypothyroidism, unspecified (principal); E04.2 Nontoxic multinodular goiter
CPT/HCPCS: 36415; 84439; 84443; 84481

== ENCOUNTER → 2019-10-10 13:56 | Outpatient (CLI) | payer MEDICARE, BC, SELFPAY ==
[2019-10-10 16:18] LABS: Thyroid Stimulating Hormone 1.37 uIU/mL (0.47-4.68)
== END ==
PROVIDERS: PCP Registered Nurse; Referring Provider Registered Nurse; Visit Provider Registered Nurse
DX: E04.1 Nontoxic single thyroid nodule (principal)
CPT/HCPCS: 36415; 84443

== ENCOUNTER → 2019-11-01 14:04 | Outpatient (CLI) | payer MEDICARE, BC, SELFPAY ==
--- NOTE | 2019-11-01 14:58 | DI.MG.S_ITS ---
Patient Name: KAILEE GONZALES date: 1950 Sex: F Attending Physician: Thomas Indications: Date: 11/01/2019 15:10 At the request of: NOHELIA MORE Procedure: US breast LT limited LIMITED ULTRASOUND OF LEFT BREAST: 11/01/2019 CLINICAL: Patient returns today to evaluate a density in the left breast. 6mnth f/u ultrasound- lt side- 400. Comparison is made to exams dated: 04/27/2019 ultrasound and 04/11/2019 mammogram - [facility]. Ultrasound of the left breast 4 o'clock region was performed on the area of interest. The 0.6 cm x 0.6 cm oval mass in the left breast at 4 o'clock posterior depth 4 cm from the nipple. This oval mass is hyperechoic with a snowstorm appearance characteristic of free silicone. Color flow imaging demonstrates that there is no vascularity present. IMPRESSION: BENIGN There is no sonographic evidence of malignancy. The 0.6 cm x 0.6 cm oval mass in the left breast most liekly represents free silicone in the breast and is benign. Return to annual mammogram screening schedule is recommended. This exam was interpreted at Station ID: [id number]. Electronically Signed By: Azucena stinson/:11/01/2019 15:27:04 letter sent: Normal Exam Ultrasound BI-RADS: 2 Benign
== END ==
PROVIDERS: PCP Registered Nurse; Referring Provider Registered Nurse; Visit Provider Registered Nurse
DX: R92.8 Other abnormal and inconclusive findings on diagnostic imaging of breast (principal); N63.23 Unspecified lump in the left breast, lower outer quadrant
CPT/HCPCS: 76642

== ENCOUNTER → 2020-06-15 15:30 | Outpatient (CLI) | payer MEDICARE, BC, SELFPAY ==
[2020-06-15 18:01] LABS: Add Manual Diff / Slide Review NO; Basophils Absolute Auto 0 /uL (0-100); Basophils Percent Auto 0.6 % (0-2); Eosinophils Absolute Auto 100 /uL (0-450); Eosinophils Percent Auto 0.9 % (2-4); Hematocrit 40.5 % (36-46); Hemoglobin 13.3 g/dL (12.0-16.0); Lymphocytes Absolute Auto 2200 /uL (1100-4500); Lymphocytes Percent Auto 27.5 % (25-40); Mean Corpuscular Hemoglobin 27.5 PG (26-34); Mean Corpuscular Volume 83.3 fL (80-100); Monocytes Absolute Auto 600 /uL (0-900); Monocytes Percent Auto 7.6 % (3-14); Neutrophils Absolute Auto 5000 /uL (1500-7000); Neutrophils Percent Auto 63.4 % (50-75); Platelet Count 323 X10^3/uL (150-400); Red Blood Cell Count 4.86 X10^6/uL (4.0-5.2); Red Cell Distribution Width 14.1 % (11.6-14.8); White Blood Cell Count 7.8 X10^3/uL (4.5-11.0)
[2020-06-15 18:15] LABS: Alanine Aminotransferase 33 IU/L (<35); Albumin 4.4 g/dL (3.5-5.0); Albumin Globulin Ratio 1.6 (1.0-2.8); Alkaline Phosphatase 109 U/L (38-126); Aspartate Aminotransferase 43 IU/L (14-36); BUN Creatinine Ratio 14.1 (6-22); Bilirubin Total 0.2 mg/dL (0.2-1.3); Blood Urea Nitrogen 12 mg/dL (7-17); Carbon Dioxide 28 mmol/L (22-32); Chloride 102 mmol/L (98-107); Estimated Glomerular Filt Rate > 60.0 mL/min (>60); Globulin 2.7 g/dL (1.7-4.1); Glucose 105 mg/dL (80-110); HEMOLYSIS < 15 (0-50); Potassium 4.5 mmol/L (3.4-5.1); Sodium 138 mmol/L (137-145); Total Protein 7.1 g/dL (6.3-8.2)
[2020-06-15 18:44] LABS: Erythrocyte Sedimentation Rate 9 MM/HR (0-20)
== END ==
PROVIDERS: PCP Registered Nurse; Referring Provider Naturopath; Visit Provider Naturopath
DX: R19.7 Diarrhea, unspecified (principal)
CPT/HCPCS: 36415; 80053; 85025; 85651

== ENCOUNTER → 2020-06-28 14:02 | Outpatient (CLI) | payer MEDICARE, BC, SELFPAY ==
[2020-06-28 15:01] LABS: Clostridium Difficile Tox PCR Negative for C.diff
== END ==
PROVIDERS: PCP Registered Nurse; Referring Provider Naturopath; Visit Provider Naturopath
DX: R19.7 Diarrhea, unspecified (principal)
CPT/HCPCS: 87045; 87177; 87329; 87493; 87899

== ENCOUNTER → 2020-11-28 15:20 | Outpatient (CLI) | payer MEDICARE, BC, SELFPAY ==
[2020-11-28 16:42] LABS: Add Manual Diff / Slide Review NO; Basophils Absolute Auto 0 /uL (0-100); Basophils Percent Auto 0.5 % (0-2); Eosinophils Absolute Auto 100 /uL (0-450); Eosinophils Percent Auto 1.3 % (2-4); Hematocrit 40.3 % (36-46); Hemoglobin 13.2 g/dL (12.0-16.0); Lymphocytes Absolute Auto 2300 /uL (1100-4500); Lymphocytes Percent Auto 40.1 % (25-40); Mean Corpuscular HGB Conc 32.7 % (30-36); Mean Corpuscular Hemoglobin 26.9 PG (26-34); Mean Corpuscular Volume 82.4 fL (80-100); Monocytes Absolute Auto 500 /uL (0-900); Monocytes Percent Auto 8.9 % (3-14); Neutrophils Absolute Auto 2800 /uL (1500-7000); Neutrophils Percent Auto 49.2 % (50-75); Platelet Count 304 X10^3/uL (150-400); Red Blood Cell Count 4.89 X10^6/uL (4.0-5.2); Red Cell Distribution Width 13.7 % (11.6-14.8); White Blood Cell Count 5.8 X10^3/uL (4.5-11.0)
[2020-11-28 17:01] LABS: Alanine Aminotransferase 22 IU/L (<35); Albumin 4.5 g/dL (3.5-5.0); Albumin Globulin Ratio 1.6 (1.0-2.8); Alkaline Phosphatase 99 U/L (38-126); Aspartate Aminotransferase 38 IU/L (14-36); BUN Creatinine Ratio 14.9 (6-22); Bilirubin Total 0.4 mg/dL (0.2-1.3); Blood Urea Nitrogen 10 mg/dL (7-17); Calcium 9.7 mg/dL (8.4-10.2); Carbon Dioxide 31 mmol/L (22-32); Chloride 101 mmol/L (98-107); Estimated Glomerular Filt Rate > 60.0 mL/min (>60); Globulin 2.8 g/dL (1.7-4.1); Glucose 107 mg/dL (80-110); HEMOLYSIS < 15 (0-50); Sodium 138 mmol/L (137-145); Total Protein 7.3 g/dL (6.3-8.2)
== END ==
PROVIDERS: PCP Registered Nurse; Referring Provider Physical Medicine & Rehabilitation; Visit Provider Physical Medicine & Rehabilitation
DX: G50.0 Trigeminal neuralgia (principal)
CPT/HCPCS: 36415; 80053; 85025

== ENCOUNTER → 2022-02-15 12:19 | Outpatient (CLI) | payer MEDICARE, BC, SELFPAY ==
[2022-02-15 13:10] LABS: Alanine Aminotransferase 23 IU/L (<35); Albumin 4.2 g/dL (3.5-5.0); Albumin Globulin Ratio 1.7 (1.0-2.8); Alkaline Phosphatase 99 U/L (38-126); Aspartate Aminotransferase 32 IU/L (14-36); BUN Creatinine Ratio 19.7 (6-22); Bilirubin Total 0.4 mg/dL (0.2-1.3); Blood Urea Nitrogen 15 mg/dL (7-17); Calcium 9.9 mg/dL (8.4-10.2); Carbon Dioxide 27 mmol/L (22-32); Chloride 103 mmol/L (98-107); Estimated Glomerular Filt Rate > 60 mL/min (>60); Globulin 2.5 g/dL (1.7-4.1); Glucose 74 mg/dL (80-110); HEMOLYSIS < 15 (0-50); Potassium 4.2 mmol/L (3.4-5.1); Sodium 141 mmol/L (137-145); Total Protein 6.7 g/dL (6.3-8.2)
[2022-02-15 13:12] LABS: Add Manual Diff / Slide Review NO; Basophils Absolute Auto 0 /uL (0-100); Basophils Percent Auto 0.6 % (0-2); Eosinophils Absolute Auto 100 /uL (0-450); Eosinophils Percent Auto 2.1 % (2-4); Hematocrit 37.3 % (36-46); Hemoglobin 12.2 g/dL (12.0-16.0); Lymphocytes Absolute Auto 2100 /uL (1100-4500); Lymphocytes Percent Auto 34.6 % (25-40); Mean Corpuscular HGB Conc 32.6 % (30-36); Mean Corpuscular Hemoglobin 26.7 PG (26-34); Mean Corpuscular Volume 81.9 fL (80-100); Monocytes Absolute Auto 600 /uL (0-900); Monocytes Percent Auto 9.3 % (3-14); Neutrophils Absolute Auto 3200 /uL (1500-7000); Neutrophils Percent Auto 53.4 % (50-75); Platelet Count 290 X10^3/uL (150-400); Red Blood Cell Count 4.56 X10^6/uL (4.0-5.2); Red Cell Distribution Width 13.9 % (11.6-14.8); White Blood Cell Count 6.1 X10^3/uL (4.5-11.0)
[2022-02-15 13:14] LABS: D Dimer 239 ng/ml (<500)
== END ==
PROVIDERS: PCP Registered Nurse; Referring Provider Internal Medicine Hematology & Oncology; Visit Provider Internal Medicine Hematology & Oncology
DX: I82.409 Acute embolism and thrombosis of unspecified deep veins of unspecified lower extremity (principal); R10.11 Right upper quadrant pain
CPT/HCPCS: 36415; 80053; 85025; 85379

== ENCOUNTER → 2022-05-28 14:29 | Outpatient (CLI) | payer MEDICARE, BC, SELFPAY ==
[2022-05-28 15:20] LABS: Add Manual Diff / Slide Review NO; Basophils Absolute Auto 0 /uL (0-100); Basophils Percent Auto 0.6 % (0-2); Eosinophils Absolute Auto 0 /uL (0-450); Eosinophils Percent Auto 0.9 % (2-4); Hematocrit 40.7 % (36-46); Hemoglobin 13.2 g/dL (12.0-16.0); Lymphocytes Absolute Auto 2100 /uL (1100-4500); Lymphocytes Percent Auto 37.4 % (25-40); Mean Corpuscular HGB Conc 32.5 % (30-36); Monocytes Absolute Auto 400 /uL (0-900); Monocytes Percent Auto 7.6 % (3-14); Neutrophils Absolute Auto 3100 /uL (1500-7000); Neutrophils Percent Auto 53.5 % (50-75); Platelet Count 331 X10^3/uL (150-400); Red Blood Cell Count 4.91 X10^6/uL (4.0-5.2); Red Cell Distribution Width 14.7 % (11.6-14.8); White Blood Cell Count 5.7 X10^3/uL (4.5-11.0)
[2022-05-28 15:39] LABS: Alanine Aminotransferase 26 IU/L (<35); Albumin 4.6 g/dL (3.5-5.0); Albumin Globulin Ratio 1.4 (1.0-2.8); Alkaline Phosphatase 88 U/L (38-126); Aspartate Aminotransferase 43 IU/L (14-36); BUN Creatinine Ratio 26.5 (6-22); Bilirubin Total 0.4 mg/dL (0.2-1.3); Blood Urea Nitrogen 18 mg/dL (7-17); Calcium 9.6 mg/dL (8.4-10.2); Carbon Dioxide 26 mmol/L (22-32); Chloride 102 mmol/L (98-107); Estimated Glomerular Filt Rate > 60 mL/min (>60); Globulin 3.2 g/dL (1.7-4.1); Glucose 113 mg/dL (80-110); HEMOLYSIS 35 (0-50); Potassium 4.2 mmol/L (3.4-5.1); Sodium 138 mmol/L (137-145); Total Protein 7.8 g/dL (6.3-8.2)
[2022-05-28 20:54] LABS: Vitamin D 25 Hydroxy (D3) 52.8 ng/mL (30.0-100.0)
[2022-05-30 11:34] LABS: Parathyroid Hormone Int 46 pg/mL (15-65)
== END ==
PROVIDERS: PCP Registered Nurse; Referring Provider Physical Medicine & Rehabilitation; Visit Provider Physical Medicine & Rehabilitation
DX: G35 Multiple sclerosis (principal); E83.52 Hypercalcemia
CPT/HCPCS: 36415; 80053; 82306; 83970; 85025

== ENCOUNTER → 2022-06-06 16:55 | Outpatient (CLI) | payer MEDICARE, BC, SELFPAY ==
[2022-06-06 17:39] LABS: Add Manual Diff / Slide Review NO; Basophils Absolute Auto 0 /uL (0-100); Basophils Percent Auto 0.6 % (0-2); Eosinophils Absolute Auto 0 /uL (0-450); Eosinophils Percent Auto 0.5 % (2-4); Hematocrit 39.4 % (36-46); Lymphocytes Absolute Auto 1900 /uL (1100-4500); Lymphocytes Percent Auto 31.7 % (25-40); Mean Corpuscular Hemoglobin 27.1 PG (26-34); Mean Corpuscular Volume 81.9 fL (80-100); Monocytes Absolute Auto 500 /uL (0-900); Monocytes Percent Auto 8.1 % (3-14); Neutrophils Absolute Auto 3600 /uL (1500-7000); Neutrophils Percent Auto 59.1 % (50-75); Platelet Count 294 X10^3/uL (150-400); Red Blood Cell Count 4.81 X10^6/uL (4.0-5.2); Red Cell Distribution Width 14.1 % (11.6-14.8); White Blood Cell Count 6.1 X10^3/uL (4.5-11.0)
[2022-06-06 18:00] LABS: Alanine Aminotransferase 25 IU/L (<35); Albumin 4.3 g/dL (3.5-5.0); Albumin Globulin Ratio 1.5 (1.0-2.8); Alkaline Phosphatase 101 U/L (38-126); Aspartate Aminotransferase 38 IU/L (14-36); BUN Creatinine Ratio 24.2 (6-22); Bilirubin Total 0.2 mg/dL (0.2-1.3); Blood Urea Nitrogen 15 mg/dL (7-17); Calcium 9.4 mg/dL (8.4-10.2); Carbon Dioxide 27 mmol/L (22-32); Chloride 101 mmol/L (98-107); Estimated Glomerular Filt Rate > 60 mL/min (>60); Globulin 2.9 g/dL (1.7-4.1); Glucose 104 mg/dL (80-110); HEMOLYSIS < 15 (0-50); Potassium 3.9 mmol/L (3.4-5.1); Sodium 137 mmol/L (137-145); Total Protein 7.2 g/dL (6.3-8.2)
[2022-06-06 18:04] LABS: High Sensitivity CRP - Cardiac 0.5 mg/L (1.0-3.0); Rheumatoid Factor 31.1 IU/mL (<12.0)
[2022-06-06 19:58] LABS: Erythrocyte Sedimentation Rate 10 MM/HR (0-20)
[2022-06-09 13:51] LABS: SS A Ro Sjogrens Antibody < 0.2 AI (0.0-0.9); SS B La Sjogrens Antibody < 0.2 AI (0.0-0.9)
[2022-06-10 15:12] LABS: ANA Screen, IFA Negative (.)
== END ==
PROVIDERS: PCP Registered Nurse; Referring Provider Ophthalmology; Visit Provider Ophthalmology
DX: C73 Malignant neoplasm of thyroid gland (principal); E89.0 Postprocedural hypothyroidism
CPT/HCPCS: 36415; 80053; 84443; 84550; 85025; 85651; 86038; 86140; 86235; 86430

== ENCOUNTER 2022-06-12 15:16 | Emergency (ER) | payer MEDICARE, BC, SELFPAY ==
[2022-06-12] VITALS (30 sets, daily range): BP systolic 133–184; BP diastolic 63–89; PULSE 66–90; RESP 18; TEMP 36.6; O2SAT 91–100; BMI 22.8
--- NOTE | 2022-06-12 15:28 | DI.RAD.S_ITS ---
PROCEDURE: XR CLAVICLE RT INDICATIONS: fall/pain TECHNIQUE: 2 views of the clavicle were acquired. COMPARISON: None. FINDINGS: Bones: Slightly displaced fracture involving distal clavicle near acromioclavicular joint is seen. No other fracture is seen. [id number] acromioclavicular joint and glenohumeral joint osteoarthritic changes are noted. Soft tissues: No suspicious soft tissue calcifications. IMPRESSION: Minimally displaced distal right clavicular shaft fracture near acromioclavicular joint. No dislocation. 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 Dictated by: Link Nascimento M.D. on 06/12/2022 at 16:19 Approved by: Link Nascimento M.D. on 06/12/2022 at 16:20
--- NOTE | 2022-06-12 15:28 | DI.CT.S_ITS ---
PROCEDURE: CT HEAD/BRAIN WO CON INDICATIONS: fall/pain/hit head/thinners TECHNIQUE: Noncontrast 4.5 mm thick angled axial sections acquired from the foramen magnum to the vertex, with coronal and sagittal reformats. For radiation dose reduction, the following was used: automated exposure control, adjustment of mA and/or kV according to patient size. COMPARISON: [facility], MR, MR BRAIN WITHOUT CONTRAST, 03/18/2022, 12:24. [facility], MR, MR BRAIN WITHOUT CONTRAST, 03/30/2020, 12:39. FINDINGS: Image quality: Excellent. CSF spaces: Basal cisterns are patent. No extra-axial fluid collections. The ventricles are symmetric in size and shape. Brain: No intracranial bleeds or masses. There is cerebral volume loss for age, with resultant ventricular and sulcal prominence. There are periventricular and deep white matter hypodensities more pronounced on the left than right. Compared to the MRI examination dated 03/30/2020, there was no significant change. There is intracranial internal carotid artery atherosclerosis. Skull and face: Calvarium and visualized facial bones appear intact, without suspicious lesions. Sinuses: Visualized sinuses and mastoids are clear. IMPRESSION: 1. No acute intracranial abnormalities. 2. Cerebral volume loss. 3. Prominent periventricular white matter hypodensities, more pronounced in the left hemisphere than right hemisphere, unchanged from the last exam and most likely secondary to asymmetric chronic small vessel ischemic changes. Dictated by: Sage Mcgraw M.D. on 06/12/2022 at 16:14 Approved by: Sage Mcgraw M.D. on 06/12/2022 at 16:20
--- NOTE | 2022-06-12 15:28 | DI.RAD.S_ITS ---
PROCEDURE: XR SHOULDER RT MIN 2V INDICATIONS: fall/pain TECHNIQUE: 2 views of the shoulder were acquired. COMPARISON: None. FINDINGS: Bones: Slightly displaced distal right clavicular fracture is seen near acromioclavicular joint. No other fracture or dislocation. 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 No suspicious bony lesions. Visualized ribs appear intact. Soft tissues: No suspicious soft tissue calcifications. IMPRESSION: Minimally displaced right distal clavicular fracture as above. No other fracture or dislocation. Dictated by: Link Nascimento M.D. on 06/12/2022 at 16:20 Approved by: Link Nascimento M.D. on 06/12/2022 at 16:21
--- NOTE | 2022-06-12 15:28 | DI.CT.S_ITS ---
PROCEDURE: CT CERVICAL SPINE WO CON INDICATIONS: fall/pain TECHNIQUE: Noncontrast 3 mm thick sections acquired from the skull base to the T4 level. Sagittal and coronal reformats were then constructed. For radiation dose reduction, the following was used: automated exposure control, adjustment of mA and/or kV according to patient size. COMPARISON: None. FINDINGS: Image quality: Excellent. Bones: No fractures or dislocations. Mild degenerative disc and facet disease. Visualized superior ribs are intact. Soft tissues: Prevertebral soft tissues are normal in thickness. No paravertebral hematomas. No apical pneumothoraces. IMPRESSION: No acute osseous injuries in cervical spine. Dictated by: Sage Mcgraw M.D. on 06/12/2022 at 16:20 Approved by: Sage Mcgraw M.D. on 06/12/2022 at 16:22
--- NOTE | 2022-06-12 15:29 | DI.RAD.S_ITS ---
PROCEDURE: XR HAND LT MIN 3V INDICATIONS: fall/pain TECHNIQUE: 3 views of the hand(s) acquired. COMPARISON: None. FINDINGS: Bones: There is a displaced fracture at the base of the proximal 1st phalanx extending into the joint space. Carpal bones are normally aligned. No suspicious bony lesions. Diffuse IP degenerative narrowing is present. Small periarticular osteophytes are present. No erosions. Soft tissues: No suspicious soft tissue calcifications. IMPRESSION: Displaced proximal 1st intra-articular fracture. Dictated by: Jessica Steen M.D. on 06/12/2022 at 16:54 Approved by: Jessica Steen M.D. on 06/12/2022 at 16:55
--- NOTE | 2022-06-12 15:30 | DI.RAD.S_ITS ---
PROCEDURE: XR KNEE RT 3V INDICATIONS: fall/pain TECHNIQUE: 3 views of the knee were acquired. COMPARISON: None. FINDINGS: Bones: No fractures or dislocations. Ovqf-pe-tshriuld tricompartmental osteoarthritis is seen most notably in medial femoral tibial compartment. No patellar subluxation. No suspicious bony lesions. Soft tissues: Moderate suprapatellar joint effusion is seen. No suspicious soft tissue calcifications. IMPRESSION: No acute right knee fracture or dislocation. Ciub-we-ndjqound tricompartmental osteoarthritis and moderate joint effusion. Dictated by: Link Nascimento M.D. on 06/12/2022 at 16:21 Approved by: Link Nascimento M.D. on 06/12/2022 at 16:21
--- NOTE | 2022-06-12 15:30 | DI.RAD.S_ITS ---
PROCEDURE: XR CHEST 1V INDICATIONS: fall/pain TECHNIQUE: One view of the chest was acquired. COMPARISON: [facility], CR, XR CHEST 2V, 08/20/2018, 12:39. FINDINGS: Surgical changes and devices: Surgical clips are seen in epigastric region. Lungs and pleura: There is mild pulmonary vascular congestion. Increased interstitial lung markings are noted bilaterally suggestive of mild pulmonary edema. No definite focal infiltrate. No pleural effusions or pneumothorax. Mediastinum: Mediastinal contours appear normal. Heart size is normal. Bones and chest wall: No suspicious bony lesions. Overlying soft tissues appear unremarkable. IMPRESSION: Pulmonary vascular congestion and suggestion of mild pulmonary edema. No definite focal infiltrate. No pleural effusion or pneumothorax. Dictated by: Link Nascimento M.D. on 06/12/2022 at 16:18 Approved by: Link Nascimento M.D. on 06/12/2022 at 16:18
--- NOTE | 2022-06-12 15:30 | DI.RAD.S_ITS ---
PROCEDURE: XR HIP W PEL IF DONE RT 2V INDICATIONS: fall/pain TECHNIQUE: AP pelvis with lateral view(s) of the right hip(s). COMPARISON: None. FINDINGS: Bones: No fractures or dislocations. Mild bilateral hip joint osteoarthritic changes are seen. No evidence of avascular necrosis of femoral head. Pelvic ring appears intact. No suspicious bony lesions. Soft tissues: The visualized bowel gas pattern is normal. No suspicious soft tissue calcifications. IMPRESSION: Mild symmetric appearing bilateral hip joint osteoarthritis. No pelvic or hip fracture. No hip dislocation. No evidence of avascular necrosis. Dictated by: Link Nascimento M.D. on 06/12/2022 at 16:18 Approved by: Link Nascimento M.D. on 06/12/2022 at 16:19
[2022-06-12] MEDS: MORPHINE 4 MG/ML INJ IV (15:40)
[2022-06-12] MEDS: ONDANSETRON 4 MG/2 ML INJ IV ×3 (15:48→20:01)
[2022-06-12] MEDS: HYDROMORPHONE 0.5 MG INJ IV (18:05)
--- NOTE | 2022-06-12 18:46 | PC.NURSE ---
at the bedside. Pt fell today while cleaning the gutters. drove pt to ED.
--- NOTE | 2022-06-12 19:45 | ED.TRAUMA ---
HPI - Trauma General Chief Complaint: Trauma Stated Complaint: lt thumb, rt collar bone pain s/p fall Time Seen by Provider: 06/12/22 15:37 Source: patient Mode of arrival: Wheelchair History of Present Illness HPI narrative: Patient 72-year-old female history of blood clots on Eliquis presenting today after a fall off a ladder. She was 5 ft up the ladder cleaning the gutters when she slipped and fell. She did hit her head. Unknown loss of consciousness. Complaining of right shoulder pain left thumb pain. She did receive some pain medication is now very nauseous. states that she does get nauseous with pain medication. She is also complaining of some right-sided hip pain and leg pain. Related Data Home Medications Medication Instructions Recorded Confirmed fexofenadine [Gabbie Allergy] 1 tab PO DAILY 12/31/17 03/03/22 fluticasone propionate 50 2 spray intranasal DAILY 12/31/17 03/03/22 mcg/actuation nasal spray,suspension metoprolol tartrate 50 mg tablet 50 mg PO BID 12/31/17 03/03/22 olopatadine 0.2 % eye drops 1 drp EYE-BOTH DAILY 12/31/17 03/03/22 (Pataday) pirbuterol 200 mcg/actuation 200 mcg inhalation DAILY 12/31/17 03/03/22 aerosol inhaler methotrexate (PF) 20 mg/0.4 mL 20 mg SUBCUT QWEEK 11/11/18 03/03/22 subcutaneous auto-injector (Rasuvo (PF)) losartan 50 mg tablet 75 mg PO DAILY 01/19/19 03/03/22 lipase 3,000-protease 1 cap PO TID 05/06/21 03/03/22 9,500-amylase 15,000 unit capsule, delayed rel (Creon) Previous Rx's Medication Instructions Recorded docusate sodium 100 mg capsule 100 mg PO BID PRN constipation #30 09/21/18 (Dulcolax Stool Softener caps (docusate)) misoprostol 200 mcg tablet 200 mcg PO DAILY #30 tabs 11/11/18 omeprazole 20 mg capsule,delayed 20 mg PO DAILY #30 caps 11/11/18 release estradiol 0.01% (0.1 mg/gram) See Rx Instructions vaginal 04/12/19 vaginal cream (Estrace) .COMPLEX #42.5 grams tramadol 50 mg tablet 50 mg PO Q6H PRN pain #15 tabs 04/12/19 levothyroxine 25 mcg capsule 25 mcg PO DAILY #90 caps 04/13/19 lidocaine 5 % topical patch 1 patch topical DAILY #15 ea 08/09/19 diclofenac potassium 50 mg tablet See Rx Instructions .Route 08/23/19 .COMPLEX #36 tabs apixaban 2.5 mg tablet (Eliquis) 2.5 mg PO BID #60 tabs 03/03/22 lidocaine 5 % topical patch 1 patch topical DAILY PRN pain 06/12/22 (scale score 4-6) #30 ea ondansetron 4 mg disintegrating 4 mg PO Q8H PRN nausea and 06/12/22 tablet vomiting #10 tabs Allergies Allergy/AdvReac Type Severity Reaction Status Date / Time Gadolinium-Containing Allergy Severe low BP, Verified 08/09/19 15:40 Contrast Medi dizzy, SOB, bright red skin amoxicillin Allergy Intermediate rash/welts/difficylty Verified 08/09/19 15:40 breathing aspirin Allergy Intermediate Difficulty Verified 08/09/19 15:40 Breathing iodine Allergy Intermediate Difficulty Verified 08/09/19 15:40 Breathing Penicillins Allergy Intermediate rash/welts/difficulty Verified 08/09/19 15:40 breathing sulfur dioxide Allergy Intermediate Difficulty Verified 08/09/19 15:40 Breathing codeine Allergy Mild Vomiting Verified 08/09/19 15:40 nitroglycerin AdvReac Intermediate bradycardia Verified 08/09/19 15:40 ,hypotensio n [id number] Antimigraine AdvReac Intermediate Verified 08/09/19 15:40 Agents lactase [From Dairy Aid] AdvReac Mild Diarrhea Verified 08/09/19 15:40 Red Food Dye Allergy Intermediate Difficulty Uncoded 08/09/19 15:40 Breathing Review of Systems Review of Systems ROS Unobtainable: All systems reviewed & are unremarkable except as noted in HPI and below Patient History Medical History Abnormal Pap smear of cervix (1978) Anemia (~1965) Ankle pain (2016) Antiphospholipid antibody syndrome (2012) Asthma (1997) Cervical cancer (1978) Cervical somatic dysfunction Chicken pox Chronic headaches (1959) Chronic migraine without aura, intractable, without status migrainosus Chronic neck pain Cranial somatic dysfunction Fatigue (09/2018) GI bleeding (1965) Gout (1991) Greater trochanteric bursitis of right hip Hemorrhoids (1967) History of thyroid cancer (2004) Iliotibial band syndrome, right leg Inappropriate sinus tachycardia Infertility Irregular periods/menstrual cycles Kidney stones (1975) Kyphosis (acquired) (postural) Measles MS (multiple sclerosis) (2007) Multiple thyroid nodules (2005) Mumps Painful menstrual periods Pelvic somatic dysfunction Peptic ulcer disease (1966) Rheumatoid arthritis (2017) Rib fractures (01/2018) Segmental and somatic dysfunction of abdomen and other regions Segmental and somatic dysfunction of lower extremity Segmental and somatic dysfunction of lumbar region Segmental and somatic dysfunction of sacral region Segmental and somatic dysfunction of thoracic region Segmental and somatic dysfunction of upper extremity Tachycardia Thyroid cancer (2006) Vaginal dryness Surgical History Anesthesia complication History of gynecologic surgery (1978) History of surgery (1965) History of surgery (1966) Family History Father No problems noted. Mother No problems noted. Brother No problems noted. Sister Cancer Diabetes mellitus Heart disease Hypertension Hyperlipidemia Mental health problem Sister Diabetes mellitus Hypertension Hyperlipidemia Stroke Grandfather Heart disease Hypertension Grandmother Diabetes mellitus Hypertension Hyperlipidemia Social History Smoking Status: Never smoker second hand exposure: No alcohol intake: current substance use type: does not use Smoking Status: Never smoker alcohol intake frequency: 0-2 drinks per day Substance Use Type: does not use Exam Initial Vital Signs Initial Vital Signs: Vital Signs Temperature 98 F 06/12/22 15:20 Pulse Rate 66 06/12/22 15:20 Respiratory Rate 18 06/12/22 15:20 Blood Pressure 184/89 H 06/12/22 15:20 Pulse Oximetry 98 06/12/22 15:20 Oxygen Delivery Method Room Air 06/12/22 15:20 GENERAL: 72-year-old female and in no acute distress. HEENT: Head is atraumatic round reactive, asymmetry NECK: No vertebral tenderness no step-off CARDIOVASCULAR: Regular rate and rhythm without murmurs, rubs or gallops. RESPIRATORY: Breath sounds equal bilaterally, no wheezes rales or rhonchi. ABDOMEN: Soft, nontender. Normoactive bowel sounds all 4 quadrants. No guarding or rebound. EXTREMITIES: Normal range of motion, no clubbing or edema. Neurovascularly intact. Tender right clavicle area. Right hip pain pedal pulse intact NEUROLOGICAL: Alert and oriented x4. 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 Course Orders Ordered: ED Orders 06/12/22 20:49 CT head/brain wo con Stat Discontinued Medications Hydromorphone HCl (Hydromorphone 0.5 Mg Inj) 0.5 mg IV NOW ONE Stop: 06/12/22 17:52 Last Admin: 06/12/22 18:05 Dose: 0.5 mg Documented By: GIULIA Sodium Chloride (Normal Saline 0.9%) 1,000 mls @ 1,000 mls/hr IV BOLUS ONE Stop: 06/12/22 20:52 Last Infusion: 06/12/22 20:48 Dose: 0 mls/hr Documented By: Admin: 06/12/22 20:01 Dose: 1,000 mls/hr Documented By: IVONNE Acetaminophen (Ofirmev) 1,000 mg in 100 mls @ 400 mls/hr IV NOW ONE Stop: 06/12/22 21:03 Last Infusion: 06/12/22 21:38 Dose: 0 mls/hr Documented By: Admin: 06/12/22 21:14 Dose: 400 mls/hr Documented By: LARRY Lorazepam (Lorazepam 2 Mg/Ml Inj) 0.5 mg IV NOW ONE Stop: 06/12/22 20:50 Last Admin: 06/12/22 20:58 Dose: 0.5 mg Documented By: LARRY Morphine Sulfate (Morphine 4 Mg/Ml Inj) 4 mg IV NOW ONE Stop: 06/12/22 15:38 Last Admin: 06/12/22 15:40 Dose: 4 mg Documented By: GIULIA Ondansetron HCl (Ondansetron 4 Mg/2 Ml Inj) 4 mg IV Q6HR PRN PRN Reason: Nausea And Vomiting Last Admin: 06/12/22 18:32 Dose: 4 mg Documented By: Admin: 06/12/22 15:48 Dose: 4 mg Documented By: GIULIA Ondansetron HCl (Ondansetron 4 Mg/2 Ml Inj) 4 mg IV NOW ONE Stop: 06/12/22 19:54 Last Admin: 06/12/22 20:01 Dose: 4 mg Documented By: IVONNE Ondansetron HCl (Ondansetron 4 Mg Odt Prepack) 1 bottle MISC SEEINSTR ONE Stop: 06/12/22 23:10 Vital Signs Vital signs: Vital Signs - 8 hr 06/12/22 18:00 06/12/22 18:04 06/12/22 18:04 Pulse Rate 85 74 Respiratory Rate Blood Pressure 133/63 Pulse Oximetry 98 98 Oxygen Delivery Method 06/12/22 18:10 06/12/22 18:10 06/12/22 18:20 Pulse Rate 66 68 Respiratory Rate Blood Pressure 133/64 Pulse Oximetry 93 94 Oxygen Delivery Method 06/12/22 18:20 06/12/22 18:30 06/12/22 18:30 Pulse Rate 90 Respiratory Rate Blood Pressure 143/68 H 168/75 H Pulse Oximetry 98 Oxygen Delivery Method 06/12/22 18:40 06/12/22 18:40 06/12/22 18:50 Pulse Rate 86 66 Respiratory Rate Blood Pressure 165/81 H Pulse Oximetry 98 96 Oxygen Delivery Method 06/12/22 18:50 06/12/22 19:01 06/12/22 19:01 Pulse Rate 80 Respiratory Rate Blood Pressure 142/66 H 169/87 H Pulse Oximetry 97 Oxygen Delivery Method 06/12/22 19:10 06/12/22 19:10 06/12/22 19:30 Pulse Rate 80 Respiratory Rate Blood Pressure 147/71 H 159/72 H Pulse Oximetry 97 Oxygen Delivery Method 06/12/22 19:30 06/12/22 19:40 06/12/22 19:40 Pulse Rate 72 69 Respiratory Rate Blood Pressure 162/69 H Pulse Oximetry 95 93 Oxygen Delivery Method 06/12/22 19:51 06/12/22 19:51 06/12/22 20:00 Pulse Rate 86 Respiratory Rate Blood Pressure 166/80 H 147/67 H Pulse Oximetry 97 Oxygen Delivery Method 06/12/22 20:00 06/12/22 20:10 06/12/22 20:10 Pulse Rate 69 76 Respiratory Rate Blood Pressure 156/79 H Pulse Oximetry 97 91 Oxygen Delivery Method 06/12/22 20:20 06/12/22 20:20 06/12/22 20:30 Pulse Rate 68 Respiratory Rate Blood Pressure 153/83 H 159/87 H Pulse Oximetry 97 Oxygen Delivery Method 06/12/22 20:30 06/12/22 20:40 06/12/22 20:40 Pulse Rate 69 69 Respiratory Rate Blood Pressure 145/74 H Pulse Oximetry 93 95 Oxygen Delivery Method 06/12/22 20:50 06/12/22 20:50 06/12/22 21:15 Pulse Rate 74 73 Respiratory Rate Blood Pressure 154/83 H Pulse Oximetry 98 98 Oxygen Delivery Method 06/12/22 21:30 06/12/22 22:00 06/12/22 22:30 Pulse Rate 72 68 69 Respiratory Rate 18 Blood Pressure Pulse Oximetry 93 95 97 Oxygen Delivery Method Room Air 06/12/22 22:46 06/12/22 22:46 Pulse Rate 66 Respiratory Rate Blood Pressure 157/74 H Pulse Oximetry Oxygen Delivery Method MDM - Trauma Lab Data 06/12/22 15:40 06/12/22 15:40 Labs: Lab Results 06/12/22 06/12/22 06/12/22 Range/Units 15:40 15:40 15:40 WBC 8.3 (4.5-11.0) X10^3/uL RBC 4.99 (4.0-5.2) X10^6/uL Hgb 13.5 (12.0-16.0) g/dL Hct 41.3 (36-46) % MCV 82.7 (80-100) fL MCH 27.0 (26-34) PG MCHC 32.6 (30-36) % RDW 14.4 (11.6-14.8) % Plt Count 328 (150-400) X10^3/uL Neut % (Auto) 57.4 (50-75) % Lymph % (Auto) 32.6 (25-40) % [place] % (Auto) 8.4 (3-14) % Eos % (Auto) 0.9 L (2-4) % Baso % (Auto) 0.7 (0-2) % Neut # (Auto) 4800 (9074-8723) /uL Lymph # (Auto) 2700 (3042-3944) /uL [place] # (Auto) 700 (0-900) /uL Eos # (Auto) 100 (0-450) /uL Baso # (Auto) 100 (0-100) /uL PT 12.0 (10.1-12.7) SECONDS INR 1.0 (0.9-1.3) APTT 37 H (26-36) SECONDS Sodium 136 L (137-145) mmol/L Potassium 4.1 (3.4-5.1) mmol/L Chloride 102 (98-107) mmol/L Carbon Dioxide 24 (22-32) mmol/L BUN 13 (7-17) mg/dL Creatinine 0.66 (0.52-1.04) mg/dL Estimated GFR > 60 (>60) mL/min BUN/Creatinine Ratio 19.7 (6-22) Glucose 120 H (80-110) mg/dL Calcium 9.8 (8.4-10.2) mg/dL Total Bilirubin 0.5 (0.2-1.3) mg/dL AST 47 H (14-36) IU/L ALT 26 (<35) IU/L Alkaline Phosphatase 114 (38-126) U/L Total Protein 7.4 (6.3-8.2) g/dL Albumin 4.6 (3.5-5.0) g/dL Globulin 2.8 (1.7-4.1) g/dL Albumin/Globulin Ratio 1.6 (1.0-2.8) Imaging Data CT scan - head: Radiologist's Impression: PROCEDURE:? CT HEAD/BRAIN WO CON ? INDICATIONS:? fall/pain/hit head/thinners ? TECHNIQUE:? Noncontrast 4.5 mm thick angled axial sections acquired from the foramen magnum to the vertex, with coronal and sagittal reformats.? For radiation dose reduction, the following was used:? automated exposure control, adjustment of mA and/or kV according to patient size.? ? COMPARISON:? [facility], MR, MR BRAIN WITHOUT CONTRAST, 03/18/2022, 12:24.? [facility], MR, MR BRAIN WITHOUT CONTRAST, 03/30/2020, 12:39. ? FINDINGS:? Image quality:? Excellent.? ? CSF spaces:? Basal cisterns are patent.? No extra-axial fluid collections.? The ventricles are symmetric in size and shape.? ? Brain:? No intracranial bleeds or masses.? There is cerebral volume loss for age, with resultant ventricular and sulcal prominence.? There are periventricular and deep white matter hypodensities more pronounced on the left than right.? Compared to the MRI examination dated 03/30/2020, there was no significant change.? There is intracranial internal carotid artery atherosclerosis.? ? Skull and face:? Calvarium and visualized facial bones appear intact, without suspicious lesions.? ? Sinuses:? Visualized sinuses and mastoids are clear.? ? IMPRESSION:? ? 1. No acute intracranial abnormalities. 2. Cerebral volume loss. 3. Prominent periventricular white matter hypodensities, more pronounced in the left hemisphere than right hemisphere, unchanged from the last exam and most likely secondary to asymmetric chronic small vessel ischemic changes. ? ? ? Dictated by: Sage Mcgraw M.D. on 06/12/2022 at 16:14 ? ? Approved by: Sage Mcgraw M.D. on 06/12/2022 at 16:20 CT - cervical spine: Radiologist's Impression: PROCEDURE:? CT CERVICAL SPINE WO CON ? INDICATIONS:? fall/pain ? TECHNIQUE:? Noncontrast 3 mm thick sections acquired from the skull base to the T4 level.? Sagittal and coronal reformats were then constructed.? For radiation dose reduction, the following was used:? automated exposure control, adjustment of mA and/or kV according to patient size.? ? COMPARISON:? None. ? FINDINGS:? Image quality:? Excellent.? ? Bones:? No fractures or dislocations.? Mild degenerative disc and facet disease.? Visualized superior ribs are intact.? ? Soft tissues:? Prevertebral soft tissues are normal in thickness.? No paravertebral hematomas.? No apical pneumothoraces.? ? ? IMPRESSION:? No acute osseous injuries in cervical spine. ? ? ? Dictated by: Sage Mcgraw M.D. on 06/12/2022 at 16:20 Extremity x-ray #1: Radiologist's Impression: PROCEDURE:? XR CLAVICLE RT ? INDICATIONS:? fall/pain ? TECHNIQUE:? 2 views of the clavicle were acquired.? ? COMPARISON:? None. ? FINDINGS:? ? Bones:? Slightly displaced fracture involving distal clavicle near acromioclavicular joint is seen.? No other fracture is seen.? [id number] acromioclavicular joint and glenohumeral joint osteoarthritic changes are noted. ? Soft tissues:? No suspicious soft tissue calcifications.? ? IMPRESSION:? Minimally displaced distal right clavicular shaft fracture near acromioclavicular joint.? No dislocation.? 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 ? ? Dictated by: Link Nascimento M.D. on 06/12/2022 at 16:19 Extremity x-ray #2: Radiologist's Impression: PROCEDURE:? XR SHOULDER RT MIN 2V ? INDICATIONS:? fall/pain ? TECHNIQUE:? 2 views of the shoulder were acquired.? ? COMPARISON:? None. ? FINDINGS:? ? Bones:? Slightly displaced distal right clavicular fracture is seen near acromioclavicular joint.? No other fracture or dislocation.? [id number] acromioclavicular joint and glenohumeral joint osteoarthritis is seen..? No suspicious bony lesions.? Visualized ribs appear intact.? ? Soft tissues:? No suspicious soft tissue calcifications.? ? IMPRESSION:? Minimally displaced right distal clavicular fracture as above.? No other fracture or dislocation. ? ? Dictated by: Link Nascimento M.D. on 06/12/2022 at 16:20 ? ? Approved by: Link Nascimento M.D. on 06/12/2022 at 16:21 ? Extremity x-ray #3: Radiologist's Impression: PROCEDURE:? XR HAND LT MIN 3V ? INDICATIONS:? fall/pain ? TECHNIQUE:? 3 views of the hand(s) acquired.? ? COMPARISON:? None. ? FINDINGS:? ? Bones:? There is a displaced fracture at the base of the proximal 1st phalanx extending into the joint space.? Carpal bones are normally aligned.? No suspicious bony lesions.? Diffuse IP degenerative narrowing is present.? Small periarticular osteophytes are present.? No erosions. ? Soft tissues:? No suspicious soft tissue calcifications.? ? ? IMPRESSION:? Displaced proximal 1st intra-articular fracture.? ? ? Dictated by: Jessica Steen M.D. on 06/12/2022 at 16:54 Chest x-ray: Radiologist's Impression: PROCEDURE:? XR CHEST 1V ? INDICATIONS:? fall/pain ? TECHNIQUE:? One view of the chest was acquired.? ? COMPARISON:? [facility], CR, XR CHEST 2V, 08/20/2018, 12:39. ? FINDINGS:? ? Surgical changes and devices:? Surgical clips are seen in epigastric region. ? Lungs and pleura:? There is mild pulmonary vascular congestion.? Increased interstitial lung markings are noted bilaterally suggestive of mild pulmonary edema.? No definite focal infiltrate.? No pleural effusions or pneumothorax.? ? Mediastinum:? Mediastinal contours appear normal.? Heart size is normal.? ? Bones and chest wall:? No suspicious bony lesions.? Overlying soft tissues appear unremarkable.? ? IMPRESSION:? Pulmonary vascular congestion and suggestion of mild pulmonary edema.? No definite focal infiltrate.? No pleural effusion or pneumothorax.? ? ? Dictated by: Link Nascimento M.D. on 06/12/2022 at 16:18 ct head #2: Radiologist's Impression: MPRESSION:? No acute intracranial abnormality.? Stable, chronic asymmetric white matter disease.? If there is high concern for parenchymal pathology, consider further evaluation with MRI. ? ? ? Dictated by: Carlos Montaño M.D. on 06/12/2022 at 21:18 ? [facility] Narrative Medical decision making narrative: Patient 72-year-old female presents as a trauma fall down ladder. She did hit her head. She is found have right clavicle fracture and a left thumb fracture. Both are splinted with slings and velcro splint. She is extremely nauseous and vomiting. This started after morphine and Dilaudid. reports that she is very sensitive to pain medication and this frequently happens. However this has persisted repeat head CT is done to rule out intracranial hemorrhage she is high-risk being on Eliquis. A repeat head CT is again negative. She is given Ativan to help control nausea vomiting. She is able to open her eyes she is overall feeling a little bit better. She is monitored in the ER for numerous hours. Nausea is really likely secondary to medications. She was given IV Tylenol to help for pain, CT have NSAIDs secondary to Eliquis. She feels like she is able to go home go to sleep wait for medicine to wear off. Given Zofran prepack Discharge Plan Departure Patient Disposition: Home Clinical Impression: Closed fracture of right clavicle, Fracture of thumb, left, closed Instructions: Clavicle Fracture, DI for Finger Fracture Activity Restrictions/Additional Instructions: *You have been diagnosed with clavicle fracture, left thumb fracture *What to do: Keep sling and splints on. They should heal without any intervention. *Continue to take medications as directed --> SENT TO [facility] Zofran 4 mg every 8 hours if needed for nausea vomiting Tylenol 1000 mg every 6 hours if needed for pain Lidocaine patch every 12 hours then remove was if needed for pain *Follow up with your primary care provider in 2-3 days or call [phone] Call orthopedics to schedule follow-up appointment *Return to ER if you should have increasing pain persistent vomiting or any new, worsening or concerning symptoms Prescriptions: New ondansetron 4 mg tablet,disintegrating 4 mg PO Q8H PRN (Reason: nausea and vomiting) Qty: 10 0RF lidocaine 5 % adhesive patch,medicated 1 patch topical DAILY PRN (Reason: pain (scale score 4-6)) Qty: 30 0RF Rx Instructions: leave on most painful area for up to 12 hrs then remove No Action levothyroxine 25 mcg capsule 25 mcg PO DAILY Qty: 90 1RF diclofenac potassium 50 mg tablet See Rx Instructions .ROUTE .COMPLEX Qty: 36 0RF Dose Instruction: TAKE 1 TABLET BY MOUTH DAILY NEEDED FOR PAIN Rx Instructions: TAKE 1 TABLET BY MOUTH DAILY NEEDED FOR PAIN docusate sodium [Dulcolax Stool Softener (dss)] 100 mg capsule 100 mg PO BID PRN (Reason: constipation) Qty: 30 0RF losartan 50 mg tablet 75 mg PO DAILY Rx Instructions: Take 50mg by mouth every AM lidocaine 5 % adhesive patch,medicated 1 patch TOP DAILY Qty: 15 1RF Rx Instructions: leave on most painful area for up to 12 hrs estradiol [Estrace] 0.01 % (0.1 mg/gram) cream See Rx Instructions VAG .COMPLEX Qty: 42.5 3RF Dose Instruction: 1/2 applicator daily for 1 week then 1/2 applicator 3 times weekly VAG ; for 14 days Rx Instructions: 1/2 applicator daily for 1 week then 1/2 applicator 3 times weekly VAG ; for 14 days tramadol 50 mg tablet 50 mg PO Q6H PRN (Reason: pain) Qty: 15 0RF Creon 3,000-9,500- 15,000 unit Capsule,Delayed Release(Dr/Ec) 1 cap PO TID Eliquis 2.5 mg Tablet 2.5 mg PO BID Qty: 60 11RF pirbuterol 200 mcg/actuation aerosol 200 mcg INHALATION DAILY metoprolol tartrate 50 mg tablet 50 mg PO BID fluticasone propionate 50 mcg/actuation spray,suspension 2 spray NASAL DAILY olopatadine [Pataday] 0.2 % drops 1 drp EYE-BOTH DAILY fexofenadine 1 tab PO DAILY Rasuvo (PF) 20 mg/0.4 mL auto-injector 20 mg SUBCUT QWEEK misoprostol 200 mcg tablet 200 mcg PO DAILY Qty: 30 2RF omeprazole 20 mg capsule,delayed release(DR/EC) 20 mg PO DAILY Qty: 30 2RF Referrals: [facility] [Provider Group] Pola Sarmiento ARNP [Primary Care Provider] - Stand Alone Forms: Patient Portal/API
[2022-06-12] MEDS: SODIUM CHLORIDE 0.9% 1,000 ML 1000 ML IV (20:01)
[2022-06-12 20:10] LABS: Add Manual Diff / Slide Review NO; Basophils Absolute Auto 100 /uL (0-100); Basophils Percent Auto 0.7 % (0-2); Eosinophils Absolute Auto 100 /uL (0-450); Eosinophils Percent Auto 0.9 % (2-4); Hematocrit 41.3 % (36-46); Hemoglobin 13.5 g/dL (12.0-16.0); Lymphocytes Absolute Auto 2700 /uL (1100-4500); Lymphocytes Percent Auto 32.6 % (25-40); Mean Corpuscular HGB Conc 32.6 % (30-36); Mean Corpuscular Volume 82.7 fL (80-100); Monocytes Absolute Auto 700 /uL (0-900); Monocytes Percent Auto 8.4 % (3-14); Neutrophils Absolute Auto 4800 /uL (1500-7000); Neutrophils Percent Auto 57.4 % (50-75); Platelet Count 328 X10^3/uL (150-400); Red Blood Cell Count 4.99 X10^6/uL (4.0-5.2); Red Cell Distribution Width 14.4 % (11.6-14.8); White Blood Cell Count 8.3 X10^3/uL (4.5-11.0)
[2022-06-12 20:17] LABS: Alanine Aminotransferase 26 IU/L (<35); Albumin 4.6 g/dL (3.5-5.0); Albumin Globulin Ratio 1.6 (1.0-2.8); Alkaline Phosphatase 114 U/L (38-126); Aspartate Aminotransferase 47 IU/L (14-36); BUN Creatinine Ratio 19.7 (6-22); Bilirubin Total 0.5 mg/dL (0.2-1.3); Blood Urea Nitrogen 13 mg/dL (7-17); Calcium 9.8 mg/dL (8.4-10.2); Carbon Dioxide 24 mmol/L (22-32); Chloride 102 mmol/L (98-107); Estimated Glomerular Filt Rate > 60 mL/min (>60); Globulin 2.8 g/dL (1.7-4.1); Glucose 120 mg/dL (80-110); HEMOLYSIS < 15 (0-50); Potassium 4.1 mmol/L (3.4-5.1); Sodium 136 mmol/L (137-145); Total Protein 7.4 g/dL (6.3-8.2)
[2022-06-12 20:28] LABS: PTT Partial Thromboplastin Tim 37 SECONDS (26-36)
--- NOTE | 2022-06-12 20:49 | DI.CT.S_ITS ---
PROCEDURE: CT HEAD/BRAIN WO CON INDICATIONS: trauma on eliquis vomiting TECHNIQUE: Noncontrast 4.5 mm thick angled axial sections acquired from the foramen magnum to the vertex, with coronal and sagittal reformats. For radiation dose reduction, the following was used: automated exposure control, adjustment of mA and/or kV according to patient size. COMPARISON: [facility], MR, MR BRAIN WITHOUT CONTRAST, 03/18/2022, 12:24. [facility], CT, CT HEAD/BRAIN WO CON, 06/12/2022, 15:34. FINDINGS: Image quality: Good CSF spaces: Basal cisterns are patent. Lateral ventricles are symmetric. Volume: Vascular calcifications. Periventricular white matter disease is commonly seen with chronic microangiopathy. Volume loss is present. These findings are moderate, asymmetric toward the left . These findings were also seen in February MRI. Brain: No intracranial hemorrhage. Nuno-white differentiation is grossly maintained. Craniofacial structures: No displaced fracture. Sinuses are clear. Orbits are intact. IMPRESSION: No acute intracranial abnormality. Stable, chronic asymmetric white matter disease. If there is high concern for parenchymal pathology, consider further evaluation with MRI. Dictated by: Carlos Montaño M.D. on 06/12/2022 at 21:18 Approved by: Carlos Montaño M.D. on 06/12/2022 at 21:20
[2022-06-12] MEDS: LORazepam 2 MG/ML INJ 0.5 MG IV (20:58)
[2022-06-12] MEDS: ACETAMINOPHEN IV 1,000 MG/100 ML VIAL 400 MG IV (21:14)
== END 2022-06-12 23:38 | disposition home or self-care (01) ==
PROVIDERS: Emergency Provider Emergency Medicine; PCP Registered Nurse
DX: S42.001A Fracture of unspecified part of right clavicle, initial encounter for closed fracture (principal); S62.502A Fracture of unspecified phalanx of left thumb, initial encounter for closed fracture; W11.XXXA Fall on and from ladder, initial encounter; Z79.01 Long term (current) use of anticoagulants
CPT/HCPCS: 36415; 70450; 71045; 72125; 73000; 73030; 73130; 73502; 73562; 80053; 85025; 85610; 85730; 96361; 96365; 96375; 96376; 99285; J0131; J1170; J2060; J2270; J2405

== ENCOUNTER → 2022-10-21 12:07 | Outpatient (CLI) | payer MEDICARE, BC, SELFPAY ==
--- NOTE | 2022-10-21 | DI.MRI.S_ITS ---
PROCEDURE: MR HAND LT WO CON INDICATIONS: STRAIN OF INTRINSIC MUSCLE OF LEFT THUMB TECHNIQUE: Noncontrast oblique coronal T1 spin echo and T2 fast spin echo with fat saturation, axial and sagittal T2 fast spin echo with fat saturation, through the thumb. COMPARISON: [facility], CR, XR FINGER(S) LEFT, 07/23/2022, 15:33. [facility], CR, XR FINGER(S) LEFT, 10/01/2022, 13:56. FINDINGS: Image quality: Excellent. Bones: Mild osseous irregularity is seen at the radial aspect of the 1st distal phalangeal base with moderate surrounding osseous edema, which may be related to primary osteoarthrosis versus prior trauma with secondary degenerative changes. Small nondisplaced osseous avulsion fracture is noted at the radial aspect of the 1st proximal phalangeal base without definite osseous bridging. There is minimal associated osseous edema. The fracture involves a portion of the distal attachment site of the radial collateral ligament. There is mild volar subluxation at the 1st metacarpophalangeal joint. Moderate degenerative changes are seen at the 1st carpometacarpal joint. Soft tissues: The radial collateral ligament at the 1st metacarpophalangeal joint is thickened, compatible with prior sprain. Probable prior sprain of the ulnar collateral ligament without definite discontinuity of fibers. No Stener lesion is seen. The adductor aponeurosis is intact. Suspected low-grade sprain of the radial collateral ligament at the 1st interphalangeal joint. Small amount of fluid is seen at the insertion site of the extensor pollicis longus tendon onto the first distal phalangeal base. The flexor and extensor pollicis tendons appear to be intact. The thenar musculature is normal in signal intensity and bulk. IMPRESSION: 1. Cortical irregularity and mild osseous edema at the radial aspect of the first distal phalangeal base, which is suspicious for a possible occult fracture versus osseous contusion or possibly severe primary osteoarthrosis. 2. Suspected low-grade sprain of the radial collateral ligament at the 1st interphalangeal joint. 3. Minimally displaced fracture at the radial base of the 1st proximal phalanx as seen on the radiographs from 06/12/2022. Mild residual osseous edema is present without osseous bridging identified. The fracture involves a portion of the radial collateral ligament insertion with superimposed low-grade sprain. 4. Grade 1-2 sprain of the ulnar collateral ligament at the 1st metacarpophalangeal joint. No Stener lesion. 5. Focal tenosynovitis of the extensor pollicis longus tendon at its insertion onto the 1st distal phalangeal base. Approved by: Finn Richey M.D. on 10/21/2022 at 14:46
== END ==
PROVIDERS: PCP Registered Nurse; Referring Provider Orthopaedic Surgery; Visit Provider Orthopaedic Surgery
DX: S62.515A Nondisplaced fracture of proximal phalanx of left thumb, initial encounter for closed fracture (principal); S66.412A Strain of intrinsic muscle, fascia and tendon of left thumb at wrist and hand level, initial encounter; S53.32XA Traumatic rupture of left ulnar collateral ligament, initial encounter; M65.842 Other synovitis and tenosynovitis, left hand
CPT/HCPCS: 73218

== ENCOUNTER → 2022-12-17 12:11 | Outpatient (CLI) | payer MEDICARE, BC, SELFPAY ==
--- NOTE | 2022-12-17 | DI.MRI.S_ITS ---
BREAST MRI OF BOTH BREASTS: 12/17/2022 CLINICAL: Breast pain, verify implant integrity. TECHNIQUE: The patient was placed prone in a dedicated breast imaging coil. Axial bilateral STIR, axial and sagittal STIR with water saturation (silicone selective), sagittal T2 fast spin echo with fat saturation, and coronal T2 fast spin echo without fat saturation sequences were acquired. COMPARISON: [facility], , MM SCREENING MAMMO IMPLANT BI, 04/11/2019, 14:38. Image quality: Diagnostic. Right breast: There is a retropectoral silicone breast implant. There is intracapsular rupture of the implant. No suspicious mass lesions or signal abnormalities on this noncontrast study. No abnormal fluid collection seen. No evidence for axillary or internal mammary chain adenopathy. No skin or nipple abnormalities. Left breast: There is a retropectoral silicone breast implant. There is intracapsular rupture of the implant. No suspicious mass lesions or signal abnormalities on this noncontrast study. No abnormal fluid collection seen. No evidence for axillary or internal mammary chain adenopathy. No skin or nipple abnormalities. IMPRESSION: BENIGN Bilateral retropectoral silicone breast implants with associated bilateral intracapsular implant rupture. No evidence for extracapsular silicone. This exam was interpreted at Station ID: [id number]. Electronically Signed By: Armand Monge M.D. aty/:12/17/2022 22:01:32 ACR BI-RADS Category 2: Benign Finding(s) [id number]
== END ==
PROVIDERS: PCP Registered Nurse; Referring Provider Nurse Practitioner Family; Visit Provider Nurse Practitioner Family
DX: T85.43XA Leakage of breast prosthesis and implant, initial encounter (principal); N64.4 Mastodynia
CPT/HCPCS: 77047

== ENCOUNTER → 2024-02-18 13:38 | Outpatient (CLI) | payer MEDICARE, BC, SELFPAY ==
--- NOTE | 2024-02-18 13:44 | DI.US.S_ITS ---
LIMITED ULTRASOUND OF LEFT BREAST: 02/18/2024 CLINICAL: Focal left breast pain x 2 mos. Silicone implants x 34 years, pre-removal eval. Comparison is made to exams dated: 12/17/2022 breast MRI, 11/01/2019 ultrasound, 04/27/2019 ultrasound, and 04/11/2019 mammogram - [facility]. Real-time ultrasound of the left breast 12-2 o'clock region was performed. Nuno scale images of the real-time examination were reviewed. No significant abnormalities were seen sonographically in the left breast tissue. A subpectoral implant is in place with an irregular inner capsule consistent with intracapsular rupture. No extravasated fluid. IMPRESSION: BENIGN There is no sonographic evidence of malignancy. The left implant shows intracapsular rupture. The patient is scheduled for removal. Following removal, return to annual mammogram screening schedule is recommended. Findings and recommendations were conveyed to the patient at time of exam. This exam was interpreted at Station ID: [id number]. Electronically Signed By: Angela yip/:02/18/2024 14:33:17 letter sent: Normal Exam ACR BI-RADS Category 2: Benign
--- NOTE | 2024-02-18 13:45 | DI.US.S_ITS ---
COMPLETE ULTRASOUND OF RIGHT BREAST: 02/18/2024 CLINICAL: Diffuse right breast pain. Comparison is made to exams dated: 12/17/2022 breast MRI and 04/11/2019 mammogram - [facility]. Real-time ultrasound of the right breast four quadrants and retroareolar regions was performed. Nuno scale images of the real-time examination were reviewed. Subpectoral implant is present. The inner capsule is less well seen. The margin is mildly irregular. No free silicone. NO suspicious findings in the surrounding breast tissue. IMPRESSION: BENIGN There is no sonographic evidence of malignancy. The right implant has concern for intracapsular rupture that correlates with breast MRI. There is no free silicone in the right breast. The patient is scheduled for implant removal. Following removal, return to annual mammogram screening schedule is recommended. Findings and recommendations were conveyed to the patient at time of exam. This exam was interpreted at Station ID: [id number]. Electronically Signed By: Angela yip/:02/18/2024 14:39:52 Entry: rahel - 02/19/2024 08:58:01 ACR BI-RADS Category 2: Benign
== END ==
PROVIDERS: PCP Registered Nurse; Referring Provider Nurse Practitioner Family; Visit Provider Nurse Practitioner Family
DX: T85.41XA Breakdown (mechanical) of breast prosthesis and implant, initial encounter (principal); N64.4 Mastodynia
CPT/HCPCS: 76642